=== PATIENT | female | born 1990 | race Caucasian/White ===

== ENCOUNTER 2018-01-11 16:45 | Emergency (ER) | payer OTHER ==
--- OUTSIDE RECORDS SUMMARY | 2018-01-11 16:47 | XMS REPORT | Continuity of Care Document ---
:1990 Author Organization Interface Problems Problem Status Onset Date Classification Date Comments Source Reported Medications Medication Details Route Status Patient Ordering Order Source Instructions Provider Date Allergies, Adverse Reactions, Alerts Substance Category Reaction Severity Reaction Status Date Comments Source type Reported Immunizations Immunization Date Given Site Status Last Updated Comments Source Results Order Results Value Reference Date Interpretation Comments Source Name Range Vital Signs Vital Sign Value Date Comments Source Encounters Location Location Encounter Encounter Reason Attending ADM DC Status Source Details Type Number For Provider Date Date Visit Outpatient [id number] TOMMY HASTINGS 07/09 [facility] /2016 [place] Out[facility] [id number] TOMMY HASTINGS 08/07 [facility] /2017 [place] Procedures Procedure Code Date Perfomer Comments Source
--- OUTSIDE RECORDS SUMMARY | 2018-01-11 16:47 | XMS REPORT | Summary of Care ---
:1990 Author Name JOANA Cruz, JEAN-PIERRE Address [facility] Unavailable , Care Team Providers Name Role Phone JOANA Cruz, JEAN-PIERRE Unavailable Unavailable MABEL Cruz, BRUNO Unavailable Unavailable Unavailable Unavailable Unavailable Functional Status Name Dates Details Functional status health issues are not documented Status: Name Dates Details Cognitive status health issues are not documented Status: Problems Name Dates Details Rheumatoid arthritis involving multiple sites with positive rheumatoid factor ( 714.0, M05.79) Status: Active Medications Name Dates Details Lyrica 75 MG Oral Capsule TAKE 1 CAPSULE TWICE DAILY. Quantity: 60 Refills: 2 Start : 20-Jun-2017 Active Lyrica 100 MG Oral Capsule TAKE 1 CAPSULE TWICE DAILY. Refills: 0 Start : 20-Jun-2017 Active Pantoprazole Sodium 40 MG Oral Tablet Delayed Release TAKE 1 TABLET BY MOUTH EVERY DAY Quantity: 30 Refills: 0 Start : 20-Jun-2017 Active Phenazopyridine HCl - 200 MG Oral Tablet Refills: 0 Start : 20-Jun-2017 Active Furosemide 20 MG Oral Tablet TAKE 1 TABLET BY MOUTH EVERY DAY Refills: 0 Start : 20-Jun-2017 Active Unisom Sleepgels 50 MG Oral Capsule TAKE 1 CAPSULE AT BEDTIME NEEDED. Refills: 0 Start : 20-Jun-2017 Active Vitamin D (Ergocalciferol) 09925 UNIT Oral Capsule TAKE 1 CAPSULE WEEKLY. Quantity: 12 Refills: 1 Start : 20-Jun-2017 Active Tamsulosin HCl - 0.4 MG Oral Capsule TAKE 1 CAPSULE DAILY Quantity: 90 Refills: 3 Start : 20-Jun-2017 Active Venlafaxine HCl ER 225 MG Oral Tablet Extended Release 24 Hour TAKE 1 TABLET BEDTIME Refills: 0 Start : 20-Jun-2017 Active HydrOXYzine HCl - 10 MG Oral Tablet TAKE 2 TABLETS AT BEDTIME. Refills: 0 Start : 20-Jun-2017 Active Cyclobenzaprine HCl - 10 MG Oral Tablet Refills: 0 Start : 20-Jun-2017 Active Promethazine HCl - 25 MG Oral Tablet TAKE 1 TABLET 3 TIMES DAILY NEEDED. Refills: 0 Start : 20-Jun-2017 Active Bydureon 2 MG Subcutaneous Pen-injector Refills: 0 Start : 20-Jun-2017 Active Hydrocodone-Acetaminophen 10-325 MG Oral Tablet TAKE 1 TABLET EVERY 8 HOURS NEEDED FOR PAIN. Quantity: 90 Refills: 0 Start : 20-Jun-2017 Active BusPIRone HCl - 10 MG Oral Tablet TAKE 1 TABLET 4 TIMES DAILY PRN Refills: 0 Start : 20-Jun-2017 Active HumaLOG KwikPen 100 UNIT/ML Subcutaneous Solution Pen-injector INJECT SUBCUTANEOUSLY DIRECTED. Refills: 0 Start : 20-Jun-2017 Active 3 ML Pen Tresiba FlexTouch 100 UNIT/ML Subcutaneous Solution Pen-injector INJECT 64 UNIT DAILY Refills: 0 Start : 20-Jun-2017 Active 5 x 3 ML Pen Remicade 100 MG Intravenous Solution Reconstituted 5 mg/kg for week 0, 2, 6 and every 6 weeks afterwards Quantity: 5 Refills: 4 BRUNO MONROE M.D. Start : 20-Jun-2017 Active SulfaSALAzine 500 MG Oral Tablet TAKE 2 TABLET TWICE DAILY Quantity: 120 Refills: 1 JEAN-PIERRE BERNARD M.D. Start : 19-Dec-2017 Active Allergies and Adverse Reactions Name Dates Details Ceclor (Allergy) Status: Active Procedures Procedure Dates Details Procedures not documented Immunization Name Dates Details Immunizations not documented Social History Name Dates Details - Status: Name Dates Details Never smoker Vital Signs Date Test Result Details No Known Vitals to report Results Date Description Value Details Results not documented Plan of Care Name Dates Details Planned Observations Planned Goals not documented Planned Encounters Appointment; JEAN-PIERRE BERNARD M.D. On: 23-Jan-2018 11:00 Interventions Provided Medication ChangesSulfaSALAzine 500 MG Oral Tablet - Start Instructions Name Dates Details Instructions not documented Encounters Appointment; JEAN-PIERRE BERNARD M.D. On: 20-Jun-2017 8:00 Encounter Diagnosis: Problem not documented Appointment; INFUSION, TREATMENT On: 29-Jul-2017 9:00 Encounter Diagnosis: Problem not documented Appointment; INFUSION, TREATMENT On: 12-Aug-2017 9:00 Encounter Diagnosis: Problem not documented Appointment; INFUSION, TREATMENT On: 09-Sep-2017 9:00 Encounter Diagnosis: Problem not documented Appointment; JEAN-PIERRE BERNARD M.D. On: 26-Sep-2017 11:00 Encounter Diagnosis: Problem not documented Appointment; INFUSION, TREATMENT On: 21-Oct-2017 9:00 Encounter Diagnosis: Problem not documented Appointment; INFUSION, TREATMENT On: 02-Dec-2017 9:00 Encounter Diagnosis: Problem not documented
[2018-01-11 17:23] LABS: Urine Blood 2+ (NEG); Urine Glucose 2+ (NEG); Urine Protein 3+ (NEG); Urine Specific Gravity 1.025 (1.005-1.030)
[2018-01-11] MEDS ORDERED: NA CHLORIDE 0.9% 1,000 ML ONE (17:23)
--- NOTE | 2018-01-11 17:32 | ER ---
Nurse's Notes [facility] Name: Lizzeth Mendes Age: 27 yrs Sex: Female : 1990 Arrival Date: 01/11/2018 Time: 16:48 Bed 27 Private MD: Devan Eric Diagnosis: Hyperglycemia, unspecified;Dehydration Presentation: 01/11 17:05 Presenting complaint: Patient states: "my blood sugar was 557 around 1030 today and I aa5 took 12 units of insulin and checked it right before coming here and it was 406". Pt also reports nausea and headache, denies vomiting. Transition of care: patient was not received from another setting of care. Onset of symptoms was December 2017. Risk Assessment: Do you want to hurt yourself or someone else? Patient reports no desire to harm self or others. Initial Sepsis Screen: Does the patient meet any 2 criteria? No. Patient's initial sepsis screen is negative. Does the patient have a suspected source of infection? No. Patient's initial sepsis screen is negative. Care prior to arrival: None. 17:05 Method Of Arrival: Ambulatory aa5 17:05 Acuity: SHANNON 3 aa5 Triage Assessment: 17:25 General: Appears in no apparent distress. well groomed, well developed, well nourished, rk2 Behavior is calm, cooperative. 17:25 Pain: Denies pain. Neuro: Level of Consciousness is alert, obeys commands, Oriented to rk2 person, place, time, situation. Respiratory: Airway is patent Respiratory effort is even, unlabored, Respiratory pattern is regular, symmetrical. Derm: Skin is pink, warm \\T\\ dry. 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 - Social history:: Smoking status: Patient uses tobacco products, smokes one-half pack cigarettes per day. - Ebola Screening: : No symptoms or risks identified at this time. Screenin:25 Abuse screen: Denies threats or abuse. rk2 17:25 Nutritional screening: No deficits noted. Tuberculosis screening: No symptoms or risk rk2 factors identified. Fall Risk None identified. Assessment: 17:34 Reassessment: Pt. signed AMA, pt. advised against leaving AMA, informed of risks rk2 involved and possible consequences of leaving. Pt. acknowledged that she understands. Also advised pt. that she is welcome to return at anytime if she changes her mind. Vital Signs: 17:04 BP 155 / 94; Pulse 106; Resp 16 S; Temp 98.0(TE); Pulse Ox 98% on R/A; Pain 5/10; aa5 ED Course: 16:48 Patient arrived in ED. mr 16:48 Devan Eric MD is Private Physician. mr 17:03 [facility] snw 17:03 Haroldo Lara MD is Attending Physician. snw 17:04 Arm band placed on. aa5 17:06 Triage completed. aa5 17:11 Shanon Awad RN is Primary Nurse. rk2 17:25 Patient has correct armband on for positive identification. Bed in low position. Call rk2 light in reach. 17:37 No provider procedures requiring assistance completed. Patient did not have IV access rk2 during this emergency room visit. Administered Medications: No medications were administered Point of Care Testing: Blood Glucose: 17:05 Blood Glucose: 385 mg/dL; aa5 Ranges: Outcome: 17:37 AMA AMA form signed rk2 17:37 Condition: unchanged 17:37 Instructed on AMA 17:50 Patient left the ED. rk2 Signatures: Maura Toledo FNP-C FNP-Maya Chun mr ManLeandra RN RN aa5 Shanon Awad RN RN rk2
--- NOTE | 2018-01-11 17:32 | EDPHYS ---
Physician Documentation [facility] Name: Lizzeth Mendes Age: 27 yrs Sex: Female : 1990 Arrival Date: 01/11/2018 Time: 16:48 Bed 27 Private MD: Devan Eric ED Physician Haroldo Lara HPI: 01/11 17:37 This 27 yrs old Female presents to ER via Ambulatory with complaints of High snw Blood Sugar. 17:37 The patient or guardian reports hyperglycemia, that was potentially precipitated by snw lack of sleep. Onset: The symptoms/episode began/occurred suddenly, 2 day(s) ago, and became persistent. Associated signs and symptoms: Pertinent positives: dry skin, ketones in urine, nausea, polydipsia, polyuria. Current symptoms: In the emergency department the patient's symptoms are unchanged from the initial presentation. The patient has experienced similar episodes in the past. It is unknown whether or not the patient has recently seen a physician. 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 - Social history:: Smoking status: Patient uses tobacco products, smokes one-half pack cigarettes per day. - Ebola Screening: : No symptoms or risks identified at this time. ROS: 17:37 Constitutional: Negative for fever, chills, and weight loss, Eyes: Negative for injury, snw pain, redness, and discharge, ENT: Negative for injury, pain, and discharge, Neck: Negative for injury, pain, and swelling, Cardiovascular: Negative for chest pain, palpitations, and edema, Respiratory: Negative for shortness of breath, cough, wheezing, and pleuritic chest pain, Back: Negative for injury and pain, : Negative for injury, bleeding, discharge, and swelling, MS/Extremity: Negative for injury and deformity, Skin: Negative for injury, rash, and discoloration, Neuro: Negative for headache, weakness, numbness, tingling, and seizure. 17:37 Abdomen/GI: Positive for nausea. Exam: 17:35 Head/Face: Normocephalic, atraumatic. Eyes: Pupils equal round and reactive to light, snw extra-ocular motions intact. Lids and lashes normal. Conjunctiva and sclera are non-icteric and not injected. Cornea within normal limits. Periorbital areas with no swelling, redness, or edema. Neck: Trachea midline, no thyromegaly or masses palpated, and no cervical lymphadenopathy. Supple, full range of motion without nuchal rigidity, or vertebral point tenderness. No Meningismus. Chest/axilla: Normal chest wall appearance and motion. Nontender with no deformity. No lesions are appreciated. Respiratory: Lungs have equal breath sounds bilaterally, clear to auscultation and percussion. No rales, rhonchi or wheezes noted. No increased work of breathing, no retractions or nasal flaring. Abdomen/GI: Soft, non-tender, with normal bowel sounds. No distension or tympany. No guarding or rebound. No evidence of tenderness throughout. Back: No spinal tenderness. No costovertebral tenderness. Full range of motion. Skin: Warm, dry with normal turgor. Normal color with no rashes, no lesions, and no evidence of cellulitis. MS/ Extremity: Pulses equal, no cyanosis. Neurovascular intact. Full, normal range of motion. Neuro: Awake and alert, GCS 15, oriented to person, place, time, and situation. Cranial nerves II-XII grossly intact. Motor strength 5/5 in all extremities. Sensory grossly intact. Cerebellar exam normal. Normal gait. Psych: Awake, alert, with orientation to person, place and time. Behavior, mood, and affect are within normal limits. 17:35 Constitutional: The patient appears alert, awake. 17:35 Constitutional: The patient appears appears dry 17:35 ENT: External ear(s): are unremarkable, Ear canal(s): are normal, Nose: is normal, Mouth: is normal, Posterior pharynx: is normal, Voice: is normal. 17:35 Cardiovascular: Rate: tachycardic, Rhythm: regular. Vital Signs: 17:04 BP 155 / 94; Pulse 106; Resp 16 S; Temp 98.0(TE); Pulse Ox 98% on R/A; Pain 5/10; aa5 MDM: 17:17 Patient medically screened. snw 17:36 Data reviewed: vital signs, nurses notes. Data interpreted: Pulse oximetry: on room air snw is 98 %. Interpretation: normal. Counseling: I had a detailed discussion with the patient and/or guardian regarding: the historical points, exam findings, and any diagnostic results supporting the discharge/admit diagnosis, the presence of at least one elevated blood pressure reading (>120/80) during this emergency department visit, lab results, the need for outpatient follow up, to return to the emergency department if symptoms worsen or persist or if there are any questions or concerns that arise at home. Refusal of service: The patient/guardian displays adequate decision making capability and despite a detailed discussion of alternatives, benefits, risks, and consequences refuses: labs, meds, ivf, tx in ED. Special discussion: Based on the history and exam findings, there is no indication for further emergent testing or inpatient evaluation. I discussed with the patient/guardian the need to see the primary care provider for further evaluation of the symptoms. 17:38 ED course: pt abruptly decided she no longer wanted to be here. Denies being upset or snw mad, just thinks she can "sleep it off". Discussed glucose control, increasing po fluid, insulin use, return to ED immediately for worsening or vomiting. 01/11 17:04 Order name: Urine Drug Screen; Complete Time: 17:40 snw 01/11 17:04 Order name: Urine Culture snw 01/11 17:04 Order name: Urine Microscopic Only; Complete Time: 17:40 snw 01/11 17:04 Order name: FSBS; Complete Time: 17:19 snw 01/11 17:04 Order name: Urine Test (obtain specimen); Complete Time: 17:19 snw 01/11 17:04 Order name: Urine Dipstick-Ancillary (obtain specimen); Complete Time: 17:19 snw 01/11 17:21 Order name: Urine Dipstick--Ancillary (enter results); Complete Time: 17:23 bd 01/11 17:21 Order name: Urine --Ancillary (enter results); Complete Time: 17:23 bd Administered Medications: No medications were administered Point of Care Testing: Blood Glucose: 17:05 Blood Glucose: 385 mg/dL; aa5 Ranges: Critical Glucose Levels:Adult <50 mg/dl or >400 mg/dl <40 mg/dl or >180 mg/dl Disposition: 01/12 16:15 Co-signature as Attending Physician, Haroldo Lara MD I agree with the assessment and meka plan of care. Disposition: 01/11/18 17:31 Patient has left against medical advice. Impression: Hyperglycemia, unspecified, Dehydration. - Patients states they are going to Home. - Condition is Stable. - Discharge Instructions: Dehydration, Adult, Diabetes and Sick Day Management, Hyperglycemia, Blood Glucose Monitoring, Adult, Rehydration, Adult. - Prescriptions for Zofran 4 mg Oral Tablet - take 1 tablet by ORAL route 4 times per day As needed; 20 tablet. Work release form form. Follow up: Private Physician; When: 24 Hours; Reason: Recheck today's complaints, Continuance of care, Re-evaluation by your physician. Follow up: Emergency Department; When: As needed; Reason: Worsening of condition. - Problem is an acute exacerbation. - Symptoms have worsened. Signatures: Dispatcher [employer] Haroldo Marrero MD MD cha Therrien, Shelly, CURATOR HORTICULTURAL MUSEUM-C CURATOR HORTICULTURAL MUSEUM-Csnw Leandra Man, RN RN aa5 Shanon Awad RN RN rk2 Corrections: (The following items were deleted from the chart) 01/11 17:50 17:31 01/11/2018 17:31 Patients has left against medical advice. Impression: rk2 Hyperglycemia, unspecified; Dehydration. Patient states they are going to Home. Condition is Stable. Follow up: Private Physician; When: 24 Hours; Reason: Recheck today's complaints, Continuance of care, Re-evaluation by your physician. Follow up: Emergency Department; When: As needed; Reason: Worsening of condition. Problem is an acute exacerbation. Symptoms have worsened. snw
[2018-01-11 17:37] LABS: Urine Bacteria <20 /HPF (<20); Urine Culture Reflex Order NOT NEEDED; Urine RBC LOADED /HPF (NONE SEEN)
[2018-01-11 17:40] LABS: Barbiturates NEGATIVE (NEGATIVE); Benzodiazepines NEGATIVE (NEGATIVE); Cocaine POSITIVE (NEGATIVE); METHAMPHETAM NEGATIVE (NEGATIVE); Methadone NEGATIVE (NEGATIVE); Opiates POSITIVE (NEGATIVE); Phencyclidine NEGATIVE (NEGATIVE); THC Cannibis NEGATIVE (NEGATIVE)
[2018-01-11 18:01] VITALS: BP 155/94; TEMP 98; O2SAT 98
== END 2018-01-11 17:50 | disposition left against medical advice (07) ==
LOC: ER 16:45
DX: E11.65 Type 2 diabetes mellitus with hyperglycemia (principal); E11.40 Type 2 diabetes mellitus with diabetic neuropathy, unspecified; Z88.1 Allergy status to other antibiotic agents; F17.210 Nicotine dependence, cigarettes, uncomplicated; M06.9 Rheumatoid arthritis, unspecified; E86.0 Dehydration; Z79.4 Long term (current) use of insulin
CPT/HCPCS: 80307; 81003; 81015; 81025; 82962; 87077; 87086; 87088; 87186; 99282; J7030

== ENCOUNTER 2018-01-13 13:21 | Inpatient (IN) | payer OTHER ==
--- OUTSIDE RECORDS SUMMARY | 2018-01-13 13:22 | XMS REPORT | Continuity of Care Document ---
[...] Number For Provider Date Date Visit Outpatient [id number] TOMMY HASTINGS 07/09 [facility] /2016 [place] [facility] [id number] TOMMY HASTINGS 08/07 [facility] /2017 [place] Procedures Procedure Code Date Perfomer Comments Source
[2018-01-13 14:13] LABS: Absolute Lymphocytes (CBC) 1.3 K/uL (0.7-4.9); Absolute Monocytes 0.4 K/uL (0.1-1.3); Absolute Neutrophil 5.7 K/uL (1.8-8.0); Basophils % 0.7 % (0-1.3); Eosinophils % 1.5 % (0-4.4); Hematocrit 34.6 % (36.0-45.0); Lymphocytes % 16.5 % (15.3-44.8); MCH 28.1 pg (27.0-35.0); MCV 89.3 fL (80-100); MPV 8.7 fL (7.6-11.3); Monocytes % 5.9 % (3.3-12.3); RBC Red Blood Cell Count 3.87 M/uL (3.86-4.86)
[2018-01-13 14:35] LABS: ALT/SGPT 23 U/L (12-78); AST/SGOT 10 U/L (15-37); Albumin 3.2 g/dL (3.4-5.0); Alkaline Phosphatase 106 U/L (45-117); BUN Blood Urea Nitrogen 30 mg/dL (7-18); Bilirubin Direct < 0.1 mg/dL (0-0.2); Bilirubin Total 0.4 mg/dL (0.2-1.0); Lipase 123 U/L (73-393); Potassium 3.8 mmol/L (3.5-5.1); Protein, Total 7.2 g/dL (6.4-8.2); Sodium Level 137 mmol/L (136-145)
[2018-01-13 14:45] LABS: Bicarbonate 14 mmol/L (21-32); Glucose Level 476 mg/dL (74-106)
[2018-01-13] MEDS ORDERED: NA CHLORIDE 0.9% 1,000 ML ONE ×2 (14:50→16:40)
--- NOTE | 2018-01-13 15:07 | ER ---
Nurse's Notes [facility] Name: Lizzeth Mendes Age: 27 yrs Sex: Female : 1990 Arrival Date: 01/13/2018 Time: 13:23 Bed 19 Private MD: Devan Eric Diagnosis: Type 1 diabetes mellitus with ketoacidosis Presentation: 01/13 13:29 Presenting complaint: Patient states: was seen here on Friday with Hyperglycemia but sv left before fluids were given. Pt checked her BS today and it was greater than 600. c/o nausea and being thirsty. Transition of care: patient was not received from another setting of care. Onset of symptoms was January 13, 2018. Care prior to arrival: None. 13:29 Method Of Arrival: Ambulatory sv 13:29 Acuity: SHANNON 3 sv 14:08 Risk Assessment: Do you want to hurt yourself or someone else? Patient reports no ph desire to harm self or others. Initial Sepsis Screen: Does the patient meet any 2 criteria? No. Patient's initial sepsis screen is negative. Does the patient have a suspected source of infection? No. Patient's initial sepsis screen is negative. 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 - Social history:: Smoking status: Patient uses tobacco products, smokes one-half pack cigarettes per day. - Ebola Screening: : No symptoms or risks identified at this time. Screenin:07 Abuse screen: Denies threats or abuse. Denies injuries from another. Nutritional ph screening: No deficits noted. Tuberculosis screening: No symptoms or risk factors identified. Fall Risk None identified. Assessment: 13:45 General: Appears in no apparent distress. uncomfortable, obese, Behavior is calm, ph cooperative, appropriate for age, Denies fever, feeling ill. Pain: Complains of pain in right leg and left leg. Neuro: Level of Consciousness is awake, alert, obeys commands, Oriented to person, place, time, situation. Cardiovascular: Capillary refill < 3 seconds Patient's skin is warm and dry. Respiratory: Airway is patent Respiratory effort is even, unlabored, Respiratory pattern is regular, symmetrical. GI: Abdomen is round non-distended, Bowel sounds present X 4 quads. Reports nausea, Patient currently denies abdominal pain, diarrhea, vomiting. : Denies burning with urination, urinary frequency. Derm: Skin is intact, Skin is pink, warm \T\ dry. Musculoskeletal: Circulation, motion, and sensation intact. Range of motion: intact in all extremities. 15:00 Reassessment: Patient appears in no apparent distress at this time. Patient and/or ph family updated on plan of care and expected duration. Pain level reassessed. Patient is alert, oriented x 3, equal unlabored respirations, skin warm/dry/pink. 16:18 Reassessment: Patient appears in no apparent distress at this time. Patient and/or ph family updated on plan of care and expected duration. Pain level reassessed. Pt asleep, respirations even and unlabored, awaiting insulin drip from pharmacy. 17:37 Reassessment: Patient appears in no apparent distress at this time. Patient and/or ph family updated on plan of care and expected duration. Pain level reassessed. Patient is alert, oriented x 3, equal unlabored respirations, skin warm/dry/pink. Pt ambulated to restroom, gait steady, urine sample obtained, report called to MARY Veras , pt to be taken to ICU. Vital Signs: 13:31 BP 136 / 83; Pulse 117; Resp 20; Temp 97.7; Pulse Ox 96% ; Height 5 ft. 3 in. (160.02 sv cm); Pain 6/10; 14:30 BP 136 / 81; Pulse 106; Resp 20; Pulse Ox 98% on R/A; ph 16:19 BP 147 / 78; Pulse 107; Resp 20; Pulse Ox 99% on R/A; ph 16:41 Weight 81.65 kg; ph 17:04 BP 140 / 78; Pulse 111; Resp 20; Temp 98.0; Pulse Ox 100% on R/A; ph 16:41 Body Mass Index 31.89 (81.65 kg, 160.02 cm) ph ED Course: 13:23 Patient arrived in ED. rg4 13:23 Devan Eric MD is Private Physician. rg4 13:31 Triage completed. sv 13:32 Arm band placed on left wrist. sv 13:36 Raul Riley MD is Attending Physician. gs 14:07 Rochelle William RN is Primary Nurse. ph 14:08 Patient has correct armband on for positive identification. Placed in gown. Bed in low ph position. Call light in reach. Side rails up X 1. Pulse ox on. NIBP on. Warm blanket given. 14:12 Missed attempt(s): 20 gauge in left antecubital area. Bleeding controlled, band aid dh3 applied, catheter tip intact. 14:34 Inserted saline lock: 22 gauge in right forearm, using aseptic technique. ,using sv aseptic technique. diffusics Flushed right forearm with 5 ml normal saline. 15:06 Devan Eric MD is Hospitalizing Provider. gs 16:40 No provider procedures requiring assistance completed. Patient admitted, IV remains in ph place. Administered Medications: 15:30 Drug: NS 0.9% 1000 ml Route: IV; Rate: 1 bolus; Site: right forearm; ph 17:45 Follow up: Response: No adverse reaction; IV Status: Completed infusion ph 17:00 Drug: NS 0.9% 1000 ml Route: IV; Rate: 125 ml/hr; Site: right forearm; ph 17:45 Follow up: Response: No adverse reaction; IV Status: Infusion continued upon admission ph 17:00 Drug: Insulin Drip - (Insulin Regular Human 100 units, NS 0.9% 100 ml) {Co-Signature: ph rb1 (Aminata Tatum RN).} {Note: initiated at 5 units/hr.} Route: IV; Rate: calculated rate; Site: right forearm; 17:45 Follow up: Response: No adverse reaction; IV Status: Infusion continued upon admission ph Point of Care Testing: Blood Glucose: 13:37 Blood Glucose: 451 mg/dL; dh3 17:00 Blood Glucose: 364 mg/dL; ph Ranges: Outcome: 15:07 Decision to Hospitalize by Provider. gs 17:37 Admitted to ICU accompanied by nurse, accompanied by tech, via stretcher, room 8, with ph chart, Report called to MARY Veras 17:37 Condition: stable 17:37 Instructed on the need for admit. 18:13 Patient left the ED. ph Signatures: Debby Ferris RN RN Sakshi Bullock, RN RN ss Stewart, Rochelle RN RN venancio Garcia, Jailene 4 Sindi Vera 3 Raul Riley MD MD Aminata Tatum RN rb1
--- NOTE | 2018-01-13 15:07 | EDPHYS ---
Physician Documentation [facility] Name: Lizzeth Mendes Age: 27 yrs Sex: Female : 1990 Arrival Date: 01/13/2018 Time: 13:23 Bed 19 Private MD: Devan Eric ED Physician Raul Riley HPI: 01/13 16:03 This 27 yrs old Female presents to ER via Ambulatory with complaints of High gs Blood Sugar. 16:03 Onset: The symptoms/episode began/occurred 1 week(s) ago, and became worse and became gs persistent. Associated signs and symptoms: Pertinent positives: anorexia, vomiting. Current symptoms: In the emergency department the patient's symptoms have improved. The patient has experienced similar episodes in the past, multiple times. The patient has been recently seen at the [facility] Emergency Department, last week. SYSTEMS ADMIN: 13:31 LMP N/A - control method sv Historical: - Allergies: 13:31 Ceclor; sv - PMHx: 13:31 Anemia; Diabetes - IDDM; neuroapthy; Rheumatoid Arthritis; sv - PSHx: 13:31 WISDOM TEETH; sv - Immunization history:: Adult Immunizations up to date. - Social history:: Smoking status: Patient uses tobacco products, smokes one-half pack cigarettes per day. - Ebola Screening: : No symptoms or risks identified at this time. ROS: 16:03 All other systems are negative. gs Exam: 16:03 Head/Face: Normocephalic, atraumatic. Eyes: Pupils equal round and reactive to light, gs extra-ocular motions intact. Lids and lashes normal. Conjunctiva and sclera are non-icteric and not injected. Cornea within normal limits. Periorbital areas with no swelling, redness, or edema. ENT: Nares patent. No nasal discharge, no septal abnormalities noted. Tympanic membranes are normal and external auditory canals are clear. Oropharynx with no redness, swelling, or masses, exudates, or evidence of obstruction, uvula midline. Mucous membranes moist. Neck: Trachea midline, no thyromegaly or masses palpated, and no cervical lymphadenopathy. Supple, full range of motion without nuchal rigidity, or vertebral point tenderness. No Meningismus. Chest/axilla: Normal chest wall appearance and motion. Nontender with no deformity. No lesions are appreciated. Respiratory: Lungs have equal breath sounds bilaterally, clear to auscultation and percussion. No rales, rhonchi or wheezes noted. No increased work of breathing, no retractions or nasal flaring. Abdomen/GI: Soft, non-tender, with normal bowel sounds. No distension or tympany. No guarding or rebound. No evidence of tenderness throughout. Back: No spinal tenderness. No costovertebral tenderness. Full range of motion. Skin: Warm, dry with normal turgor. Normal color with no rashes, no lesions, and no evidence of cellulitis. MS/ Extremity: Pulses equal, no cyanosis. Neurovascular intact. Full, normal range of motion. Neuro: Awake and alert, GCS 15, oriented to person, place, time, and situation. Cranial nerves II-XII grossly intact. Motor strength 5/5 in all extremities. Sensory grossly intact. Cerebellar exam normal. Normal gait. 16:03 Constitutional: The patient appears alert, awake. 16:03 Cardiovascular: Rate: tachycardic, Rhythm: regular, Pulses: no pulse deficits are appreciated. Vital Signs: 13:31 BP 136 / 83; Pulse 117; Resp 20; Temp 97.7; Pulse Ox 96% ; Height 5 ft. 3 in. (160.02 sv cm); Pain 6/10; 14:30 BP 136 / 81; Pulse 106; Resp 20; Pulse Ox 98% on R/A; ph 16:19 BP 147 / 78; Pulse 107; Resp 20; Pulse Ox 99% on R/A; ph 16:41 Weight 81.65 kg; ph 17:04 BP 140 / 78; Pulse 111; Resp 20; Temp 98.0; Pulse Ox 100% on R/A; ph 16:41 Body Mass Index 31.89 (81.65 kg, 160.02 cm) ph MDM: 13:43 Patient medically screened. 01/13 13:44 Order name: Basic Metabolic Panel; Complete Time: 15:03 01/13 13:44 Order name: CBC with Diff; Complete Time: 15:03 01/13 13:44 Order name: Hepatic Function; Complete Time: 15:03 01/13 13:44 Order name: Lipase; Complete Time: 15:03 01/13 13:44 Order name: Urine Microscopic Only 01/13 15:03 Order name: Magnesium 01/13 15:03 Order name: Phosphorus 01/13 16:09 Order name: ABG 01/13 16:30 Order name: Acetone, Serum 01/13 16:43 Order name: ABG Arterial Blood Gas [facility] 01/13 17:46 Order name: Urine Dipstick--Ancillary (enter results) 01/13 17:46 Order name: Urine --Ancillary (enter results) 01/13 17:54 Order name: Urine --Ancillary [facility] 01/13 17:54 Order name: Urine Dipstick-Ancillary [facility] 01/13 13:44 Order name: IV Saline Lock; Complete Time: 14:35 01/13 13:44 Order name: Labs collected and sent; Complete Time: 16:22 01/13 17:56 Order name: Acetone Level EDID Administered Medications: 15:30 Drug: NS 0.9% 1000 ml Route: IV; Rate: 1 bolus; Site: right forearm; ph 17:45 Follow up: Response: No adverse reaction; IV Status: Completed infusion ph 17:00 Drug: NS 0.9% 1000 ml Route: IV; Rate: 125 ml/hr; Site: right forearm; ph 17:45 Follow up: Response: No adverse reaction; IV Status: Infusion continued upon admission ph 17:00 Drug: Insulin Drip - (Insulin Regular Human 100 units, NS 0.9% 100 ml) {Co-Signature: ph rb1 (Aminata Tatum RN).} {Note: initiated at 5 units/hr.} Route: IV; Rate: calculated rate; Site: right forearm; 17:45 Follow up: Response: No adverse reaction; IV Status: Infusion continued upon admission ph Point of Care Testing: Blood Glucose: 13:37 Blood Glucose: 451 mg/dL; dh3 17:00 Blood Glucose: 364 mg/dL; ph Ranges: Critical Glucose Levels:Adult <50 mg/dl or >400 mg/dl <40 mg/dl or >180 mg/dl Disposition: 01/13/18 15:07 Hospitalization ordered by Devan Eric for Inpatient Admission. Preliminary diagnosis is Type 1 diabetes mellitus with ketoacidosis. - Bed requested for Intensive Care Unit. - Status is Inpatient Admission. ph - Condition is Stable. - Problem is new. - Symptoms have improved. UTI on Admission? No Signatures: Dispatcher [employer] EDMS Lizzie Leung Stephanie, RN Shonda Nichole, RN RN Rochelle William RN RN RileyRaul doshi MD MD Aminata Tatum RN rb1 Corrections: (The following items were deleted from the chart) 16:23 15:07 Hospitalization Ordered by Devan Eric MD for Inpatient Admission. Preliminary dw diagnosis is Type 1 diabetes mellitus with ketoacidosis. Bed requested for Intensive Care Unit. Status is Inpatient Admission. Condition is Stable. Problem is new. Symptoms have improved. UTI on Admission? No. gs 17:17 16:23 01/13/2018 15:07 Hospitalization Ordered by Devan Eric MD for Inpatient bd Admission. Preliminary diagnosis is Type 1 diabetes mellitus with ketoacidosis. Bed requested for Intensive Care Unit. Status is Inpatient Admission. Condition is Stable. Problem is new. Symptoms have improved. UTI on Admission? No. 18:13 17:17 01/13/2018 15:07 Hospitalization Ordered by Devan Eric MD for Inpatient ph Admission. Preliminary diagnosis is Type 1 diabetes mellitus with ketoacidosis. Bed requested for Intensive Care Unit. Status is Inpatient Admission. Condition is Stable. Problem is new. Symptoms have improved. UTI on Admission? No. bd
[2018-01-13] MEDS ORDERED: ONDANSETRON 4 MG/2 ML VIAL IV PRN ×2 (15:46→17:15)
[2018-01-13] MEDS ORDERED: NACHLORIDE 0.45% 1,000 ML IV SCH (16:00)
[2018-01-13] MEDS ORDERED: INSULIN -REGULAR HUMAN 100 UNIT in NA CHLORIDE 0.9% 100 ML IV SCH (16:00)
[2018-01-13 16:29] LABS: Arterial Blood Carboxyhemoglob 0.8 % (0-1.5); Blood Gas Oxyhemoglobin 92.1 % (94-97); Blood O2 Saturation 94.9 % (92-98.5)
[2018-01-13] MEDS ORDERED: D50W 25 GM/50 ML SYRINGE IV PRN (17:18)
[2018-01-13] MEDS ORDERED: GLUCAGON 1 MG/VIAL IM PRN ×2 (17:18→17:55)
--- NOTE | 2018-01-13 17:28 | P.HP ---
Certification for Inpatient Patient admitted to: Inpatient With expected LOS: >2 Midnights Patient will require the following post-hospital care: None Practitioner: I am a practitioner with admitting privileges, knowledge of patient current condition, hospital course, and medical plan of care. 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 She woke up this morning sweating. Her sugars were in the 600's. [place] that her insulin pump was not working right. The patient had no complaints of fever or chills. No cough, dysuria or diarrhea. She was continuing to stay elevated. Decided to come to the ER. Allergies cefaclor [From Ceclor] Allergy (Verified 01/21/17 11:05) Itching/Hives/Rash Home Medications: Pregabalin [Lyrica*] 150 mg PO TID 01/09/16 Venlafaxine HCl [Effexor*] 225 mg PO BEDTIME 01/09/16 Folic Acid 1 mg PO DAILY 01/21/17 Hydrocodone Bit/Acetaminophen [Hydrocodon-Acetaminophn 10-325] 1 tab PO TID 11/04 Insulin Aspart [Novolog Flexpen] See Protocol SQ TIDWM 01/21/17 Insulin Degludec [Tresiba Flextouch U-100] 70 units SQ DAILY 01/21/17 Iron 65 mg PO BID 01/21/17 Pantoprazole [Protonix Tab*] 40 mg PO DAILY 01/21/17 Trazodone [Desyrel*] 50 mg PO BEDTIME 01/21/17 Smz./Tmp. [Bactrim Ds 800 MG/160 MG] 1 tab PO BID #10 tab 01/22/17 - Past Medical/Surgical History Diabetic: Yes -: DM1 since 2011 -: HTN -: RA -: Depression -: gastric ulcers -: Neuropathy -: tooth extraction - Family History Sister -: Diabetes Notes: TYPE I - Social History Alcohol use: Yes CD- Drugs: No Caffeine use: Yes Review of Systems 10-point ROS is otherwise unremarkable General: Chills, Sweats Physical Examination - Physical Exam General: Alert, In no apparent distress HEENT: Atraumatic, PERRLA, Mucous membr. moist/pink, EOMI, Sclerae nonicteric Neck: Supple, 2+ carotid pulse no bruit, No LAD, Without JVD or thyroid abnormality Respiratory: Clear to auscultation bilaterally, Normal air movement Cardiovascular: Regular rate/rhythm, Normal S1 S2 Gastrointestinal: Normal bowel sounds, No tenderness Musculoskeletal: No tenderness Integumentary: No rashes Neurological: Normal gait, Normal speech, Normal strength at 5/5 x4 extr, Normal tone, Normal affect Lymphatics: No axilla or inguinal lymphadenopathy - Studies Laboratory Data (last 24 hrs) 01/13/18 13:54: Phosphorus 3.0, Magnesium 2.0 01/13/18 13:54: WBC 7.6, Hgb 10.9 L, Hct 34.6 L, Plt Count 262 01/13/18 13:54: Sodium 137, Potassium 3.8, BUN 30 H, Creatinine 2.30 H, Glucose 476 H*, Total Bilirubin 0.4, AST 10 L, ALT 23, Alkaline Phosphatase 106, Lipase 123 Assessment and Plan - Problems (Diagnosis) (1) Diabetic hyperosmolar non-ketotic state Onset Date: 01/22/17 Current Visit: No Status: Acute Plan: Patient will be admitted to the unit on an insulin drip. Has some signs that there may be a UTI. Will wait for the results. may be due to the elevated sugar and ketones in the urine. Will keep her on the drip while she has an anion gap. She has the number for her [employer] rep. Will need to have nursing call to have them come down and evaluate her device. Discharge Plan: Home Plan to discharge in: Greater than 2 days - Advance Directives Does patient have a Living Will: No Does patient have a Durable POA for Healthcare: No - Code Status/Comfort Care Code Status Assessed: Yes Code Status: Full Code Physician Review: Patient Assessed, Agree with Above Assessment and Plan Critical Care: Yes Time Spent Managing Pts Care (In Minutes): 40
[2018-01-13 17:54] LABS: Urine Blood 2+ (NEG); Urine Glucose 2+ (NEG); Urine Protein 3+ (NEG); Urine pH 5.5 (5.0-7.0)
[2018-01-13 17:59] LABS: Urine Bacteria >50 /HPF (<20); Urine Culture Reflex Order REFLEXED
[2018-01-13] MEDS: NA CHLORIDE 0.9% 1,000 ML IV SCH ×2 (18:00→22:51)
[2018-01-13] MEDS ORDERED: INSULIN -REGULAR HUMAN 50 UNIT/0.5 ML ML IV SCH (18:00)
[2018-01-13 18:21] VITALS: BMI 33.1
[2018-01-13] MEDS: HYDROCODONE/APAP 7.5/325 MG TAB PO PRN (18:30)
[2018-01-13] MEDS: ENOXAPARIN 40 MG/0.4 ML SQ SCH (18:30)
[2018-01-13 19:32] LABS: Potassium 3.7 mmol/L (3.5-5.1)
[2018-01-13] MEDS: PREGABALIN 75 MG CAP PO SCH (20:58)
[2018-01-13] MEDS ORDERED: INSULIN -REGULAR HUMAN 50 UNIT/0.5 ML ML SQ SCH (21:00)
[2018-01-13] MEDS: FLUTICASONE 50MCG NASAL SPRAY NAS SCH (21:00)
[2018-01-14 05:57] LABS: Absolute Lymphocytes (CBC) 2.8 K/uL (0.7-4.9); Absolute Monocytes 0.6 K/uL (0.1-1.3); Absolute Neutrophil 3.1 K/uL (1.8-8.0); Basophils % 0.9 % (0-1.3); Eosinophils % 3.8 % (0-4.4); Hematocrit 28.6 % (36.0-45.0); Lymphocytes % 41.5 % (15.3-44.8); MCH 28.3 pg (27.0-35.0); MCV 87.2 fL (80-100); MPV 8.2 fL (7.6-11.3); Monocytes % 8.5 % (3.3-12.3); RBC Red Blood Cell Count 3.28 M/uL (3.86-4.86)
[2018-01-14 06:15] LABS: BUN Blood Urea Nitrogen 21 mg/dL (7-18); Bicarbonate 20 mmol/L (21-32); Glucose Level 185 mg/dL (74-106); HDL Cholesterol 51 mg/dL (40-60); LDL Cholesterol, Calculated 128 (<130); Potassium 3.9 mmol/L (3.5-5.1); Sodium Level 141 mmol/L (136-145); Thyroid Stimulating Hormone 0.54 uIU/mL (0.36-3.74)
[2018-01-14] MEDS: NA CHLORIDE 0.9% 1,000 ML IV SCH ×3 (06:44→22:55)
[2018-01-14] MEDS ORDERED: D50W 25 GM/50 ML SYRINGE IV PRN ×2 (08:43→08:44)
[2018-01-14] MEDS ORDERED: GLUCAGON 1 MG/VIAL IM PRN ×2 (08:43→08:44)
[2018-01-14] MEDS: INSULIN DETEMIR 100 UNIT/1 ML INSULIN SQ SCH (09:28)
[2018-01-14] MEDS: PANTOPRAZOLE 40MG TABLET PO SCH (09:28)
[2018-01-14] MEDS: PREGABALIN 75 MG CAP PO SCH ×2 (09:28→20:22)
--- NOTE | 2018-01-14 10:32 | P.PN ---
Subjective Date of Service: 01/14/18 Primary Care Provider: Hernesto Chief Complaint: diabetic ketoacidosis Subjective: Improving (anion gap has closed.) Review of Systems 10-point ROS is otherwise unremarkable Physical Examination - Vital Signs Temperature: 98.7 F Blood Pressure: 152/100 Pulse: 93 Respirations: 11 Pulse Ox (%): 93 - Physical Exam General: Alert, In no apparent distress HEENT: Atraumatic, PERRLA, EOMI Neck: Supple, JVD not distended Respiratory: Clear to auscultation bilaterally, Normal air movement Cardiovascular: Regular rate/rhythm, Normal S1 S2 Gastrointestinal: Normal bowel sounds, No tenderness Musculoskeletal: No tenderness Integumentary: No rashes Neurological: Normal speech, Normal tone, Normal affect Lymphatics: No axilla or inguinal lymphadenopathy - Studies Laboratory Data (last 24 hrs) 01/13/18 13:54: Phosphorus 3.0, Magnesium 2.0 01/13/18 13:54: WBC 7.6, Hgb 10.9 L, Hct 34.6 L, Plt Count 262 01/13/18 13:54: Sodium 137, Potassium 3.8, BUN 30 H, Creatinine 2.30 H, Glucose 476 H*, Total Bilirubin 0.4, AST 10 L, ALT 23, Alkaline Phosphatase 106, Lipase 123 Assessment & Plan - Problems (Diagnosis) (1) Diabetic hyperosmolar non-ketotic state Onset Date: 01/22/17 Current Visit: No Status: Acute Plan: Patient gap is closed. Will start her on levemir and sliding scale. Start feeding her. Will have her bring her pump and will have the [employer] rep come in to evaluate her pump Discharge Plan: Home Plan to discharge in: 48 Hours - Code Status/Comfort Care Code Status Assessed: Yes Code Status: Full Code Physician Review: Patient Assessed, Agree with Above Assessment and Plan Critical Care: Yes Time Spent Managing Pts Care (In Minutes): 20
[2018-01-14] MEDS: HYDROCODONE/APAP 7.5/325 MG TAB PO PRN ×3 (11:04→20:28)
[2018-01-14] MEDS: VENLAFAXINE HCL 75 MG TABLET PO SCH (12:11)
[2018-01-14] MEDS: INSULIN -REGULAR HUMAN 50 UNIT/0.5 ML ML SQ SCH ×3 (12:11→20:22)
[2018-01-14] MEDS: ENOXAPARIN 40 MG/0.4 ML SQ SCH (17:32)
[2018-01-14] MEDS: AMLODIPINE 10 MG TAB PO SCH (17:32)
[2018-01-14] MEDS: NITROFURAN MACRO 100 MG CAP PO SCH ×2 (17:41→17:42)
[2018-01-14] MEDS: FLUTICASONE 50MCG NASAL SPRAY NAS SCH (20:36)
[2018-01-14 21:11] VITALS: O2SAT 95
[2018-01-15] MEDS: NA CHLORIDE 0.9% 1,000 ML IV SCH ×2 (01:22→09:16)
[2018-01-15] MEDS: HYDROCODONE/APAP 7.5/325 MG TAB PO PRN ×2 (04:22→10:08)
[2018-01-15 06:02] LABS: Absolute Monocytes 0.5 K/uL (0.1-1.3); Absolute Neutrophil 1.7 K/uL (1.8-8.0); Eosinophils % 5.4 % (0-4.4); Hematocrit 30.2 % (36.0-45.0); Lymphocytes % 53.9 % (15.3-44.8); MCH 28.4 pg (27.0-35.0); MCV 87.9 fL (80-100); Monocytes % 9.2 % (3.3-12.3); RBC Red Blood Cell Count 3.43 M/uL (3.86-4.86)
[2018-01-15 06:21] LABS: Potassium 3.5 mmol/L (3.5-5.1)
[2018-01-15] MEDS ORDERED: POTASSIUM CL SA 10 MEQ TAB PO ONE (07:30)
[2018-01-15] MEDS: INSULIN -REGULAR HUMAN 50 UNIT/0.5 ML ML SQ SCH ×2 (07:30→11:33)
[2018-01-15] MEDS: INSULIN DETEMIR 100 UNIT/1 ML INSULIN SQ SCH (09:00)
[2018-01-15 09:03] VITALS: BP 163/94; TEMP 97.5
[2018-01-15] MEDS: AMLODIPINE 10 MG TAB PO SCH (09:15)
[2018-01-15] MEDS: NITROFURAN MACRO 100 MG CAP PO SCH (09:15)
[2018-01-15] MEDS: VENLAFAXINE HCL 75 MG TABLET PO SCH (09:15)
[2018-01-15] MEDS: PREGABALIN 75 MG CAP PO SCH (09:15)
[2018-01-15] MEDS: PANTOPRAZOLE 40MG TABLET PO SCH (09:15)
--- NOTE | 2018-01-15 11:00 | P.DS ---
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 She woke up this morning sweating. Her sugars were in the 600's. Mikado that her insulin pump was not working right. The patient had no complaints of fever or chills. No cough, dysuria or diarrhea. She was continuing to stay elevated. Decided to come to the ER. Hospital Course: patient was admitted to the ICU started on an Insulin drip. her Gap closed by the next morning. She was started on levemir. Was able to tolerate oral food. Was transfered to the floor. We contacted [employer] her insulin pump company. The patient can be safely discharged when her pump supplies arrive at home. Will have her follow up in the office. Vital Signs/Physical Exam: Temp Pulse Resp BP Pulse Ox 97.5 F 89 18 163/94 H 96 01/15/18 08:00 01/15/18 08:00 01/15/18 08:00 01/15/18 08:00 01/15/18 08:00 General: Alert, In no apparent distress HEENT: Atraumatic, PERRLA, EOMI Neck: Supple, JVD not distended Respiratory: Clear to auscultation bilaterally, Normal air movement Cardiovascular: Regular rate/rhythm, Normal S1 S2 Gastrointestinal: Normal bowel sounds, No tenderness Musculoskeletal: No tenderness Integumentary: No rashes Neurological: Normal speech, Normal tone, Normal affect Lymphatics: No axilla or inguinal lymphadenopathy Laboratory Data at Discharge: WBC 5.6 K/uL (4.3-10.9) D 01/15/18 05:31 Hgb 9.7 g/dL (12.0-15.0) L 01/15/18 05:31 Hct 30.2 % (36.0-45.0) L 01/15/18 05:31 Plt Count 212 K/uL (152-406) 01/15/18 05:31 Sodium 143 mmol/L (136-145) 01/15/18 05:31 Potassium 3.5 mmol/L (3.5-5.1) 01/15/18 05:31 BUN 15 mg/dL (7-18) 01/15/18 05:31 Creatinine 1.30 mg/dL (0.55-1.3) 01/15/18 05:31 Glucose 94 mg/dL (74-106) 01/15/18 05:31 Phosphorus 3.0 mg/dL (2.5-4.9) 01/13/18 13:54 Magnesium 2.0 mg/dL (1.8-2.4) 01/14/18 05:34 Total Bilirubin 0.4 mg/dL (0.2-1.0) 01/13/18 13:54 AST 10 U/L (15-37) L 01/13/18 13:54 ALT 23 U/L (12-78) 01/13/18 13:54 Alkaline Phosphatase 106 U/L (45-117) 01/13/18 13:54 Triglycerides 119 mg/dL (<150) 01/14/18 05:34 Cholesterol 203 mg/dL (<200) H 01/14/18 05:34 HDL Cholesterol 51 mg/dL (40-60) 01/14/18 05:34 Cholesterol/HDL Ratio 3.98 01/14/18 05:34 Lipase 123 U/L (73-393) 01/13/18 13:54 Home Medications: Venlafaxine HCl [Effexor*] 150 mg PO BEDTIME 01/09/16 Amlodipine [Norvasc] 10 mg PO DAILY 01/13/18 Aripiprazole [Abilify] 2 mg PO BEDTIME 01/13/18 Doxylamine Succinate [Unisom] 25 mg PO BEDTIME 01/13/18 Hydrocodone Bit/Acetaminophen [Hydrocodon-Acetaminophn 10-325] 1 each PO TID PRN 01/13/18 Hydroxyzine HCl [Atarax] 20 mg PO BEDTIME 01/13/18 Levothyroxine [Synthroid] 75 mcg PO [id number] 01/13/18 Pantoprazole [Protonix Tab] 40 mg PO DAILY 01/13/18 Pregabalin [Lyrica] 100 mg PO BID 01/13/18 sulfaSALAzine [Sulfasalazine] 1,000 mg PO BID 01/13/18 Insulin Detemir [Levemir*] 25 units SQ DAILY 30 Days ml 01/15/18 New Medications: Insulin Detemir [Levemir*] 25 units SQ DAILY 30 Days ml Diet: ADA Activity: Ad kala Followup: Devan Eric MD [Primary Care Provider] - 1-2 Weeks Physician Review: Patient Assessed, Agree with Above Assessment and Plan Time spent managing pt's care (in minutes): 45
== END 2018-01-15 12:10 | disposition home or self-care (01) | DRG 919 ==
LOC: ER 13:21 → ERHOLD 15:07 → 3RD-ICU 17:41 → 2ND 01-14 19:09
PROVIDERS: ADMIT Internal Medicine; ATTEND Internal Medicine
DX: T85.694A Other mechanical complication of insulin pump, initial encounter (principal); E10.10 Type 1 diabetes mellitus with ketoacidosis without coma; Z88.1 Allergy status to other antibiotic agents; I10 Essential (primary) hypertension; M06.9 Rheumatoid arthritis, unspecified; F32.9 Major depressive disorder, single episode, unspecified; E10.40 Type 1 diabetes mellitus with diabetic neuropathy, unspecified; E66.9 Obesity, unspecified; Z68.31 Body mass index [BMI] 31.0-31.9, adult
CPT/HCPCS: 36415; 80048; 80061; 80076; 80307; 81003; 81015; 81025; 82010; 82805; 82962; 83036; 83690; 83735; 84100; 84443; 85025; 87077; 87086; 87088; 87186; 96361; 96365; 99282; 99285; J1650; J7030

== ENCOUNTER 2018-01-20 21:04 | Emergency (ER) | payer OTHER ==
--- OUTSIDE RECORDS SUMMARY | 2018-01-20 21:06 | XMS REPORT | Continuity of Care Document ---
[...] Number For Provider Date Date Visit Outpatient [id number] TOMMY HASTINGS 07/09 [facility] /2016 [facility] Outpatient [id number] TOMMY HASTINGS 08/07 [facility] /2017 [facility] Procedures Procedure Code Date Perfomer Comments Source
[2018-01-20] MEDS ORDERED: KETOROLAC 30 MG/ML INJ ONE ×2 (22:00→22:29)
[2018-01-20 22:06] LABS: Urine Blood 3+ (NEG); Urine Glucose 2+ (NEG); Urine Protein 3+ (NEG); Urine pH 5.5 (5.0-7.0)
[2018-01-20] MEDS ORDERED: CYCLOBENZAPRINE 10 MG TAB ONE (23:30)
[2018-01-20 23:54] LABS: Absolute Lymphocytes (CBC) 2.3 K/uL (0.7-4.9); Absolute Monocytes 0.7 K/uL (0.1-1.3); Absolute Neutrophil 4.1 K/uL (1.8-8.0); Basophils % 0.6 % (0-1.3); Eosinophils % 2.4 % (0-4.4); Hematocrit 29.7 % (36.0-45.0); Lymphocytes % 31.7 % (15.3-44.8); MCH 28.6 pg (27.0-35.0); MPV 8.8 fL (7.6-11.3); Monocytes % 9.3 % (3.3-12.3); RBC Red Blood Cell Count 3.37 M/uL (3.86-4.86)
[2018-01-21 00:11] LABS: Potassium 3.9 mmol/L (3.5-5.1)
--- NOTE | 2018-01-21 00:46 | ER ---
Nurse's Notes [facility] Name: Lizzeth Mendes Age: 27 yrs Sex: Female : 1990 Arrival Date: 01/20/2018 Time: 21:08 Bed 14 Private MD: Devan Eric Diagnosis: Pain in left knee;Diabetes mellitus due to underlying condition with hyperglycemia;Chronic kidney disease, unspecified Presentation: 01/20 21:19 Presenting complaint: Patient states: she is having sudden onset of left knee pain she bb is on pain management for arthritis and takes hydrocodone but it is not helping and she is having difficulty walking. Transition of care: patient was not received from another setting of care. Onset of symptoms was January 20, 2018. Risk Assessment: Do you want to hurt yourself or someone else? Patient reports no desire to harm self or others. Initial Sepsis Screen: Does the patient meet any 2 criteria? No. Patient's initial sepsis screen is negative. Does the patient have a suspected source of infection? No. Patient's initial sepsis screen is negative. Care prior to arrival: None. 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/A - control method bb Historical: - Allergies: 21:27 Ceclor; bb - Home Meds: 21:27 Humalog 100 unit/mL Sub-Q crtg per sliding scale [Active]; Toujeo SoloStar subcutaneous bb 65 unit nightly [Active]; sulfasalazine 500 mg Oral tab 1 tab 4 times per day [Active]; [place] 10-325 mg Oral tab 1 tab three times a day [Active]; amlodipine 10 mg tab 1 tab once daily [Active]; Abilify 2 mg oral tab daily [Active]; buspirone 15 mg Oral tab 1 tab 2 times per day [Active]; furosemide 20 mg Oral tab 1 tab once daily [Active]; hydroxyzine HCl 10 mg Oral tab twice a day [Active]; Lyrica 100 mg Oral 2 times per day [Active]; pantoprazole 40 mg oral TbEC 1 tab once daily [Active]; Synthroid 75 mcg Oral tab 1 tab once daily [Active]; unisom [Active]; venlafaxine 150 mg oral cp24 1 cap once daily [Active]; - PMHx: 21:27 Anemia; Diabetes - IDDM; neuroapthy; Rheumatoid Arthritis; bb - PSHx: 21:27 dental surgery; bb - Immunization history:: Adult Immunizations up to date. - Social history:: Smoking status: Patient uses tobacco products, smokes one-half pack cigarettes per day, Patient/guardian denies using alcohol, street drugs. - Ebola Screening: : No symptoms or risks identified at this time. Screenin:35 Abuse screen: Denies threats or abuse. Denies injuries from another. Nutritional lp1 screening: No deficits noted. Tuberculosis screening: No symptoms or risk factors identified. Fall Risk None identified. Assessment: 21:41 General: Appears uncomfortable, Behavior is calm, cooperative, appropriate for age. lp1 Pain: Complains of pain in left knee Pain currently is 8 out of 10 on a pain scale. Quality of pain is described as sharp, Aggravated by increased activity, weight bearing, Noted to be grimacing. Neuro: Level of Consciousness is awake, alert, obeys commands. Cardiovascular: Patient's skin is warm and dry. Respiratory: Respiratory effort is even, unlabored. GI: No signs and/or symptoms were reported involving the gastrointestinal system. : No signs and/or symptoms were reported regarding the genitourinary system. EENT: No signs and/or symptoms were reported regarding the EENT system. Derm: Skin is pink, warm \T\ dry. Musculoskeletal: Circulation, motion, and sensation intact. Range of motion: limited in left knee. 22:45 Reassessment: Patient appears in no apparent distress at this time. No changes from lp1 previously documented assessment. Patient and/or family updated on plan of care and expected duration. Pain level reassessed. 23:33 Reassessment: Patient appears in no apparent distress at this time. Patient and/or mg2 family updated on plan of care and expected duration. Pain level reassessed. Patient is alert, oriented x 3, equal unlabored respirations, skin warm/dry/pink. Vital Signs: 21:27 BP 139 / 86; Pulse 114; Resp 16 S; Temp 99.1(O); Pulse Ox 99% on R/A; Weight 82.55 kg bb (R); Height 5 ft. 3 in. (160.02 cm) (R); Pain 10/10; 23:33 BP 136 / 89; Pulse 89; Resp 18; Pulse Ox 100% on R/A; Pain 2/10; mg2 21:27 Body Mass Index 32.24 (82.55 kg, 160.02 cm) bb ED Course: 21:08 Patient arrived in ED. am2 21:09 Devan Eric MD is Private Physician. am2 21:21 Triage completed. bb 21:27 Arm band placed on Patient placed in an exam room, on a stretcher, on pulse oximetry. bb 21:31 Haroldo Muse PA is PHCP. cp 21:31 Shiva Young MD is Attending Physician. cp 21:35 Argenis Dias, MARY is Primary Nurse. lp1 21:42 Patient has correct armband on for positive identification. Pulse ox on. NIBP on. lp1 21:45 Urine collected: clean catch specimen, cloudy. mg2 22:10 US Extremity Venous Unilateral Ltd In Process Unspecified. EDMS 22:28 X-ray completed. Portable x-ray completed in exam room. Patient tolerated procedure mh1 well. 22:28 XRAY Knee LEFT 3 view In Process Unspecified. EDMS 23:29 Initial lab(s) drawn, by me, sent to lab. lp1 [id number] 00:43 Saroj Hughes MD is Referral Physician. cp 01:01 No provider procedures requiring assistance completed. Patient did not have IV access mg2 during this emergency room visit. Administered Medications: 01/20 22:38 Drug: TORadol 60 mg Route: IM; Site: right gluteus; mg2 23:25 Follow up: Response: No adverse reaction; Pain is decreased mg2 23:30 Drug: Flexeril 10 mg Route: PO; mg2 01/21 01:00 Follow up: Response: No adverse reaction; Pain is decreased mg2 01:00 Not Given (Patient Refused): NS 0.9% 1000 ml IV at 1 bolus Per protocol; 1000 mL bolus mg2 01:00 Not Given (Patient Refused): Insulin Regular Human 10 units IVP once mg2 Outcome: 00:45 Discharge ordered by . cp 01:00 Discharged to home ambulatory, with crutches, with family. mg2 01:00 Condition: stable 01:00 Discharge instructions given to patient, family, Instructed on discharge instructions, follow up and referral plans. Demonstrated understanding of instructions, follow-up care, crutch walking. 01:01 Patient left the ED. mg2 Signatures: Dispatcher [employer] EDMS Minerva Ferrera mh1 Sera Bautista RN RN bb Argenis Dias RN RN lp1 Haroldo Muse PA PA cp Moreno, Amanda 2 Alfred Muller RN RN mg2
--- NOTE | 2018-01-21 00:46 | EDPHYS ---
Physician Documentation [facility] Name: Lizzeth Mendes Age: 27 yrs Sex: Female : 1990 Arrival Date: 01/20/2018 Time: 21:08 Bed 14 Private MD: Devan Eric ED Physician Shiva Young HPI: 01/20 21:42 This 27 yrs old Female presents to ER via Ambulatory with complaints of Knee cp Pain - rad to thign. 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 bb Historical: - Allergies: 21: Ceclor; bb - Home Meds: 21:27 Humalog 100 unit/mL Sub-Q crtg per sliding scale [Active]; Toujeo SoloStar subcutaneous bb 65 unit nightly [Active]; sulfasalazine 500 mg Oral tab 1 tab 4 times per day [Active]; [place] 10-325 mg Oral tab 1 tab three times a day [Active]; amlodipine 10 mg tab 1 tab once daily [Active]; Abilify 2 mg oral tab daily [Active]; buspirone 15 mg Oral tab 1 tab 2 times per day [Active]; furosemide 20 mg Oral tab 1 tab once daily [Active]; hydroxyzine HCl 10 mg Oral tab twice a day [Active]; Lyrica 100 mg Oral 2 times per day [Active]; pantoprazole 40 mg oral TbEC 1 tab once daily [Active]; Synthroid 75 mcg Oral tab 1 tab once daily [Active]; unisom [Active]; venlafaxine 150 mg oral cp24 1 cap once daily [Active]; - PMHx: 21:27 Anemia; Diabetes - IDDM; neuroapthy; Rheumatoid Arthritis; bb - PSHx: 21:27 dental surgery; bb - Immunization history:: Adult Immunizations up to date. - Social history:: Smoking status: Patient uses tobacco products, smokes one-half pack cigarettes per day, Patient/guardian denies using alcohol, street drugs. - Ebola Screening: : No symptoms or risks identified at this time. ROS: 21:45 Constitutional: Negative for body aches, chills, fever, poor PO intake. cp 21:45 Eyes: Negative for injury, pain, redness, and discharge. cp 21:45 ENT: Negative for drainage from ear(s), ear pain, sore throat, difficulty swallowing, difficulty handling secretions. 21:45 Cardiovascular: Negative for chest pain, edema, palpitations. 21:45 Respiratory: Negative for cough, shortness of breath, wheezing. 21:45 Abdomen/GI: Negative for abdominal pain, nausea, vomiting, and diarrhea, constipation, black/tarry stool, rectal bleeding. 21:45 Back: Negative for pain at rest, pain with movement, radiated pain. 21:45 : Negative for urinary symptoms. 21:45 MS/extremity: Positive for decreased range of motion, pain, swelling, tenderness, of the left knee, Negative for injury or acute deformity, paresthesias. 21:45 Skin: Negative for cellulitis, rash. 21:45 Neuro: Negative for altered mental status, headache, numbness, weakness. 21:45 All other systems are negative. Exam: 21:52 Constitutional: The patient appears in no acute distress, alert, awake, non-toxic, well cp developed, well nourished. 21:52 Head/Face: Normocephalic, atraumatic. cp 21:52 Eyes: Periorbital structures: appear normal, Conjunctiva: normal, no exudate, no injection, Sclera: no appreciated abnormality, Lids and lashes: appear normal, bilaterally. 21:52 ENT: External ear(s): are unremarkable, Nose: is normal, Mouth: Lips: moist, Oral mucosa: pink and intact, moist, Posterior pharynx: is normal, airway is patent, no erythema, no exudate. 21:52 Neck: ROM/movement: is normal, is supple, without pain, no range of motions limitations, no nuchal rigidity. 21:52 Chest/axilla: Inspection: normal, Palpation: is normal, no crepitus, no tenderness. 21:52 Cardiovascular: Rate: tachycardic, Rhythm: regular, Edema: is not appreciated, JVD: is not appreciated. 21:52 Respiratory: the patient does not display signs of respiratory distress, Respirations: normal, no use of accessory muscles, no retractions, no splinting, no tachypnea, labored breathing, is not present, Breath sounds: are clear throughout, no decreased breath sounds, no stridor, no wheezing. 21:52 Abdomen/GI: Exam negative for discomfort, distension, guarding, Inspection: abdomen appears normal. 21:52 Musculoskeletal/extremity: ROM: limited passive range of motion due to pain, in the left knee, Perfusion: the extremity is normally perfused throughout, Sensation intact. Joints: All joints are normal except the suprapatella displays painful range of motion, swelling, tenderness, mild lateral joint line tenderness to palpation. 21:52 Skin: cellulitis, is not appreciated, no rash present. Vital Signs: 21:27 BP 139 / 86; Pulse 114; Resp 16 S; Temp 99.1(O); Pulse Ox 99% on R/A; Weight 82.55 kg bb (R); Height 5 ft. 3 in. (160.02 cm) (R); Pain 10/10; 23:33 BP 136 / 89; Pulse 89; Resp 18; Pulse Ox 100% on R/A; Pain 2/10; mg2 21:27 Body Mass Index 32.24 (82.55 kg, 160.02 cm) bb MDM: 21:31 Patient medically screened. cp 22:00 Differential diagnosis: tendonitis, effusion, septic joint, strain. 01/21 00:44 Data reviewed: vital signs, nurses notes, lab test result(s), radiologic studies, plain cp films, ultrasound, and as a result, I will discharge patient. 00:44 Test interpretation: by ED physician or midlevel provider: plain radiologic studies. cp Counseling: I had a detailed discussion with the patient and/or guardian regarding: the historical points, exam findings, and any diagnostic results supporting the discharge/admit diagnosis, lab results, radiology results, the need for outpatient follow up, a orthopedic surgeon, to return to the emergency department if symptoms worsen or persist or if there are any questions or concerns that arise at home. Response to treatment: the patient's symptoms have mildly improved after treatment. 01/20 22:02 Order name: Urine Dipstick--Ancillary (enter results); Complete Time: 22:35 2 01/20 22:36 Interpretation: Normal except: UGLUC 2+; UKET 1+; UBLD 3+; UPROT 3+; UESTR TRACE. cp 01/20 22:02 Order name: Urine --Ancillary (enter results); Complete Time: 22:35 rg2 01/20 21:39 Order name: XRAY Knee LEFT 3 view cp 07/03 21:39 Order name: US Extremity Venous Unilateral Ltd cp 01/20 22:42 Order name: CBC with Diff; Complete Time: 00:16 cp 01/21 00:17 Interpretation: Normal except: WBC 7.3; RBC 3.37; HGB 9.7; HCT 29.7; PLT 289. cp 01/20 22:42 Order name: BMP; Complete Time: 00:16 cp 01/21 00:17 Interpretation: Normal except: CL 108; GLUC 368; BUN 23; CRE 2.50; GFR 23. cp 01/20 21:39 Order name: Urine Test (obtain specimen); Complete Time: 22:03 cp 01/20 21:39 Order name: Urine Dipstick-Ancillary (obtain specimen); Complete Time: 22:03 cp 01/21 00:21 Order name: Knee Immobilizer: left knee; Complete Time: 01:00 cp 01/21 00:21 Order name: Crutches; Complete Time: 01:00 cp Administered Medications: 01/20 22:38 Drug: TORadol 60 mg Route: IM; Site: right gluteus; mg2 23:25 Follow up: Response: No adverse reaction; Pain is decreased mg2 23:30 Drug: Flexeril 10 mg Route: PO; mg2 01/21 01:00 Follow up: Response: No adverse reaction; Pain is decreased mg2 01:00 Not Given (Patient Refused): NS 0.9% 1000 ml IV at 1 bolus Per protocol; 1000 mL bolus mg2 01:00 Not Given (Patient Refused): Insulin Regular Human 10 units IVP once mg2 Disposition: 01/21/18 00:45 Discharged to Home. Impression: Pain in left knee, Diabetes mellitus due to underlying condition with hyperglycemia, Chronic kidney disease, unspecified. - Condition is Stable. - Discharge Instructions: Elastic Bandage and RICE, Hyperglycemia, Knee Immobilizer, Knee Pain, Chronic Kidney Disease. - Medication Reconciliation Form, Thank You Letter, Antibiotic Education, Prescription Opioid Use, Work release form form. - Follow up: Saroj Hughes MD; When: 2 - 3 days; Reason: Recheck today's complaints. Signatures: Dispatcher [employer] Sera Cm RN RN bb Haroldo Muse PA PA Alfred Smith RN RN mg2 Corrections: (The following items were deleted from the chart) 00:46 00:45 01/21/2018 00:45 Discharged to Home. Impression: Pain in left knee. Condition is cp Stable. Forms are Work release form, Medication Reconciliation Form, Thank You Letter, Antibiotic Education, Prescription Opioid Use. Follow up: Saroj Hughes; When: 2 - 3 days; Reason: Recheck today's complaints. cp 01:01 00:46 01/21/2018 00:45 Discharged to Home. Impression: Pain in left knee; Diabetes mg2 mellitus due to underlying condition with hyperglycemia; Chronic kidney disease, unspecified. Condition is Stable. Discharge Instructions: Elastic Bandage and RICE, Knee Immobilizer, Knee Pain, Hyperglycemia. Forms are Work release form, Medication Reconciliation Form, Thank You Letter, Antibiotic Education, Prescription Opioid Use. Follow up: Saroj Hughes; When: 2 - 3 days; Reason: Recheck today's complaints. cp
[2018-01-21 01:06] VITALS: TEMP 99.1
[2018-01-21 01:07] VITALS: BP 136/89; O2SAT 100
--- NOTE | 2018-01-21 07:17 | RAD REPORT ---
EXAM DESCRIPTION: VAS - Extremity Venous Uni Ltd - 01/20/2018 10:10 pm CLINICAL HISTORY: Leg pain and swelling COMPARISON: None. TECHNIQUE: Real-time sonographic evaluation of the left lower extremity deep venous system was perfo rmed. Grayscale and Doppler assessment performed. FINDINGS: Normal compressibility, flow augmentation, phasic flow and spontaneous flow are identified in the left lower common femoral, superficial femoral and popliteal veins. Deep veins at the ankle a lso clear. No intraluminal filling defects seen. IMPRESSION: No DVT in the left lower extremity.
--- NOTE | 2018-01-21 07:20 | RAD REPORT ---
EXAM DESCRIPTION: RAD - Knee Left 3 View - 01/20/2018 10:30 pm CLINICAL HISTORY: Left-sided knee pain COMPARISON: None. FINDINGS: No fracture, dislocation or periosteal reaction.No joint effusion seen. No joint space katie rowing. No abnormal spurring. No suspicious finding in the soft tissues. IMPRESSION: No acute bone or joint finding. Clinical concerns for internal derangement or occult bony injury could be further assessed with MR im aging.
== END 2018-01-21 01:01 | disposition home or self-care (01) ==
LOC: ER 21:04
DX: M25.562 Pain in left knee (principal); N18.9 Chronic kidney disease, unspecified; Z79.4 Long term (current) use of insulin; E08.65 Diabetes mellitus due to underlying condition with hyperglycemia; E08.40 Diabetes mellitus due to underlying condition with diabetic neuropathy, unspecified; E08.22 Diabetes mellitus due to underlying condition with diabetic chronic kidney disease; Z88.3 Allergy status to other anti-infective agents
CPT/HCPCS: 36415; 80048; 81003; 81025; 85025; 93971; 96372; 99284

== ENCOUNTER 2018-01-31 19:46 | Emergency (ER) | payer OTHER ==
--- OUTSIDE RECORDS SUMMARY | 2018-01-31 19:47 | XMS REPORT | Continuity of Care Document ---
[...] Number For Provider Date Date Visit Outpatient [id number] TOMMY HASTINGS 07/09 [facility] /2016 [place] Outpatient [id number] TOMMY HASTINGS 08/07 [facility] /2017 [place] Procedures Procedure Code Date Perfomer Comments Source
[2018-01-31] MEDS ORDERED: NA CHLORIDE 0.9% 1,000 ML ONE (20:56)
[2018-01-31 21:04] LABS: Absolute Monocytes 0.7 K/uL (0.1-1.3); Absolute Neutrophil 4.8 K/uL (1.8-8.0); Basophils % 0.7 % (0-1.3); Eosinophils % 4.5 % (0-4.4); Hematocrit 29.9 % (36.0-45.0); Lymphocytes % 33.5 % (15.3-44.8); MCH 28.8 pg (27.0-35.0); MCV 86.6 fL (80-100); MPV 7.9 fL (7.6-11.3); Monocytes % 7.5 % (3.3-12.3); RBC Red Blood Cell Count 3.45 M/uL (3.86-4.86)
[2018-01-31] MEDS ORDERED: ONDANSETRON 4 MG/2 ML VIAL ONE (21:06)
[2018-01-31] MEDS ORDERED: FAMOTIDINE 20 MG/2 ML VIAL IV ONE (21:06)
[2018-01-31 21:15] LABS: Urine Bacteria LOADED /HPF (<20); Urine Culture Reflex Order REFLEXED
[2018-01-31 21:17] LABS: Urine Blood 2+ (NEG); Urine Glucose 2+ (NEG); Urine Protein 3+ (NEG); Urine Specific Gravity >1.030 (1.005-1.030); Urine pH 5.5 (5.0-7.0)
[2018-01-31 21:25] LABS: ALT/SGPT 34 U/L (12-78); AST/SGOT 24 U/L (15-37); Alkaline Phosphatase 96 U/L (45-117); BUN Blood Urea Nitrogen 26 mg/dL (7-18); Bicarbonate 25 mmol/L (21-32); Bilirubin Direct < 0.1 mg/dL (0-0.2); Bilirubin Total 0.1 mg/dL (0.2-1.0); Glucose Level 224 mg/dL (74-106); Lipase 75 U/L (73-393); Potassium 3.6 mmol/L (3.5-5.1); Protein, Total 6.9 g/dL (6.4-8.2); Sodium Level 141 mmol/L (136-145)
[2018-01-31] MEDS ORDERED: Levofloxacin500mg IV 500 MG/100 ML BAG IV ONE (21:38)
--- NOTE | 2018-01-31 22:09 | EDPHYS ---
Physician Documentation [facility] Name: Lizzeth Mendes Age: 27 yrs Sex: Female : 1990 Arrival Date: 01/31/2018 Time: 19:47 Bed 24 Private MD: Devan Eric ED Physician Alexander Vega HPI: 01/31 20:56 This 27 yrs old Female presents to ER via Ambulatory with complaints of jr8 possible kidney infection+. 20:56 The patient presents to the emergency department with nausea, vomiting. Onset: The jr8 symptoms/episode began/occurred acutely, 3 day(s) ago. Possible causes: unknown. The symptoms are aggravated by nothing. The symptoms are alleviated by nothing. Associated signs and symptoms: Pertinent positives: dysuria. Severity of symptoms: At their worst the symptoms were moderate in the emergency department the symptoms are unchanged. The patient has experienced a previous episode. The patient has not recently seen a physician. 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 aj1 Historical: - Allergies: 20:02 Ceclor; aj1 20:02 NSAIDS; aj1 - Home Meds: 20:02 Abilify 2 mg Oral tab daily [Active]; amlodipine 10 mg tab 1 tab once daily [Active]; aj1 buspirone 15 mg Oral tab 1 tab 2 times per day [Active]; furosemide 20 mg Oral tab 1 tab once daily [Active]; Humalog 100 unit/mL Sub-Q crtg per sliding scale [Active]; hydroxyzine HCl 10 mg Oral tab twice a day [Active]; Lyrica 100 mg Oral 2 times per day [Active]; [place] 10-325 mg Oral tab 1 tab three times a day [Active]; pantoprazole 40 mg Oral TbEC 1 tab once daily [Active]; sulfasalazine 500 mg Oral tab 1 tab 4 times per day [Active]; Synthroid 75 mcg Oral tab 1 tab once daily [Active]; Toujeo SoloStar subcutaneous 65 unit nightly [Active]; unisom [Active]; venlafaxine 150 mg Oral cp24 1 cap once daily [Active]; - PMHx: 20:02 Anemia; Diabetes - IDDM; neuroapthy; Rheumatoid Arthritis; aj1 - Immunization history:: Flu vaccine is up to date. - Social history:: Smoking status: Patient uses tobacco products, 2-3 cigarettes per day. - Ebola Screening: : Patient denies travel to an Ebola-affected area in the 21 days before illness onset. ROS: 20:56 Eyes: Negative for injury, pain, redness, and discharge, ENT: Negative for injury, jr8 pain, and discharge, Neck: Negative for injury, pain, and swelling, Cardiovascular: Negative for chest pain, palpitations, and edema, Respiratory: Negative for shortness of breath, cough, wheezing, and pleuritic chest pain, Back: Negative for injury and pain, MS/Extremity: Negative for injury and deformity, Skin: Negative for injury, rash, and discoloration, Neuro: Negative for headache, weakness, numbness, tingling, and seizure. 20:56 Abdomen/GI: Positive for nausea and vomiting, Negative for abdominal pain, diarrhea, abdominal cramps, abdominal distension, anorexia, dysphagia, hematemesis, black/tarry stool, rectal pain, rectal bleeding, bowel incontinence, flatulence. 20:56 : Positive for urinary symptoms, Negative for vaginal bleeding, vaginal discharge, vaginal itching, menstrual abnormality, missed period. Exam: 20:56 ENT: Nares patent. No nasal discharge, no septal abnormalities noted. Tympanic jr8 membranes are normal and external auditory canals are clear. Oropharynx with no redness, swelling, or masses, exudates, or evidence of obstruction, uvula midline. Mucous membranes moist. Neck: Trachea midline, no thyromegaly or masses palpated, and no cervical lymphadenopathy. Supple, full range of motion without nuchal rigidity, or vertebral point tenderness. No Meningismus. Cardiovascular: Regular rate and rhythm with a normal S1 and S2. No gallops, murmurs, or rubs. Normal PMI, no JVD. No pulse deficits. Respiratory: Lungs have equal breath sounds bilaterally, clear to auscultation and percussion. No rales, rhonchi or wheezes noted. No increased work of breathing, no retractions or nasal flaring. Skin: Warm, dry with normal turgor. Normal color with no rashes, no lesions, and no evidence of cellulitis. MS/ Extremity: Pulses equal, no cyanosis. Neurovascular intact. Full, normal range of motion. Neuro: Awake and alert, GCS 15, oriented to person, place, time, and situation. Cranial nerves II-XII grossly intact. Motor strength 5/5 in all extremities. Sensory grossly intact. Cerebellar exam normal. Normal gait. 20:56 Abdomen/GI: Soft, non-tender, with normal bowel sounds. No distension or tympany. No guarding or rebound. No evidence of tenderness throughout. 20:56 Back: pain, that is mild, of the right flank, ROM is normal, normal spinal alignment noted, CVA tenderness, that is mild, is noted on the right. Vital Signs: 20:02 BP 105 / 65; Pulse 103; Resp 18; Temp 98.2(T); Pulse Ox 97% on R/A; Weight 77.11 kg; aj1 Height 5 ft. 4 in. (162.56 cm); Pain 5/10; 20:02 Body Mass Index 29.18 (77.11 kg, 162.56 cm) aj1 MDM: 20:29 Patient medically screened. jr8 22:02 Data reviewed: vital signs, nurses notes, lab test result(s), and as a result, I will jr8 discharge patient. Data interpreted: Pulse oximetry: on room air is 97 %. Interpretation: normal. Counseling: I had a detailed discussion with the patient and/or guardian regarding: the historical points, exam findings, and any diagnostic results supporting the discharge/admit diagnosis, lab results, the need for outpatient follow up, a family practitioner, nephrology. ED course: Detailed discussion with patient about renal function. How we will have to adjust antibiotics and need for close f/u. 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 Patient without white cell count. Able to tolerate fluids by mouth. . 01/31 20:30 Order name: Basic Metabolic Panel; Complete Time: 21:01/31 20:30 Order name: CBC with Diff; Complete Time: 21:37 01/31 20:30 Order name: Creatinine for Radiology; Complete Time: :01/31 20:30 Order name: Hepatic Function; Complete Time: :01/31 20:30 Order name: Lipase; Complete Time: 21:01/31 20:30 Order name: Urine Microscopic Only; Complete Time: 21:01/31 20:30 Order name: Urine Test (obtain specimen); Complete Time: 20:49 [facility] 01/31 20:53 Order name: Urine Dipstick--Ancillary (enter results); Complete Time: 21: 01/31 20:53 Order name: Urine --Ancillary (enter results); Complete Time: 21: 01/31 21:16 Order name: Urine Culture [facility] 01/31 20:30 Order name: IV Saline Lock; Complete Time: 20:49 [facility] 01/31 20:30 Order name: Labs collected and sent; Complete Time: 20:49 [facility] 01/31 20:30 Order name: Urine Dipstick-Ancillary (obtain specimen); Complete Time: 20:49 Administered Medications: 20:59 Drug: NS 0.9% 1000 ml Route: IV; Rate: 1000 ml; Site: right antecubital; rv 23:06 Follow up: Response: No adverse reaction; IV Status: Completed infusion rv 21:09 Drug: Zofran 4 mg Route: IVP; Site: right antecubital; rv 23:06 Follow up: Response: No adverse reaction rv 21:10 Drug: Pepcid 20 mg Route: IVP; Site: right antecubital; rv 23:06 Follow up: Response: No adverse reaction rv 21:45 Drug: LevaQUIN 500 mg Volume: 100 ml; Route: IVPB; Infused Over: 60 mins; Site: right rv antecubital; 23:06 Follow up: Response: No adverse reaction; IV Status: Completed infusion rv Disposition: 02/01 01:10 Co-signature as Attending Physician, Alexander Vega MD. rn Disposition: 01/31/18 22:08 Discharged to Home. Impression: Acute tubulo-interstitial nephritis, Chronic kidney disease (CKD). - Condition is Stable. - Discharge Instructions: Pyelonephritis, Adult, Chronic Kidney Disease. - Prescriptions for Levaquin 500 mg Oral Tablet - take 1 tablet by ORAL route as directed To take one tablet by mouth every 48 hours until complete; 5 tablet. Zofran 4 mg Oral Tablet - take 1 tablet by ORAL route every 12 hours As needed; 20 tablet. - Medication Reconciliation Form, Thank You Letter, Antibiotic Education, Prescription Opioid Use, Work release form form. - Follow up: Devan Eric MD; When: 1 - 2 days; Reason: Recheck today's complaints, Continuance of care, Re-evaluation by your physician. - Problem is new. - Symptoms have improved. Signatures: Dispatcher [employer] EDMS Shari Ho RN RN aj1 Alexander Vega MD MD rn Roszak, Josh, PA PA jr8 Alexis Arteaga RN RN rv Corrections: (The following items were deleted from the chart) 01/31 22:15 22:02 ED course: Detailed discussion with patient about renal function. How we will jr8 have to adjust antibiotics and need for close f/u. 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 jr8 23:07 22:08 01/31/2018 22:08 Discharged to Home. Impression: Acute tubulo-interstitial rv nephritis; Chronic kidney disease (CKD). Condition is Stable. Forms are Medication Reconciliation Form, Thank You Letter, Antibiotic Education, Prescription Opioid Use. Follow up: Devan Eric; When: 1 - 2 days; Reason: Recheck today's complaints, Continuance of care, Re-evaluation by your physician. Problem is new. Symptoms have improved. jr8
--- NOTE | 2018-01-31 22:09 | ER ---
Nurse's Notes [facility] Name: Lizzeth Mendes Age: 27 yrs Sex: Female : 1990 Arrival Date: 01/31/2018 Time: 19:47 Bed 24 Private MD: Devan Eric Diagnosis: Acute tubulo-interstitial nephritis;Chronic kidney disease (CKD) Presentation: 01/31 19:58 Presenting complaint: Patient states: "I've been throwing up all day, I think I might aj1 have a kidney infection because the last time I felt like this it was a kidney infection" Reports dizziness,dysuria, urinary frequency. Reports sore throat from vomiting, but otherwise denies pain. States that she checked her blood sugar today and it was 136. Transition of care: patient was not received from another setting of care. Onset of symptoms was January 24, 2018. Risk Assessment: Do you want to hurt yourself or someone else? Patient reports no desire to harm self or others. Initial Sepsis Screen: Does the patient meet any 2 criteria? No. Patient's initial sepsis screen is negative. Does the patient have a suspected source of infection? No. Patient's initial sepsis screen is negative. Care prior to arrival: None. 19:58 Method Of Arrival: Ambulatory aj1 19:58 Acuity: SHANNON 3 aj1 Triage Assessment: 20:02 General: Appears in no apparent distress. uncomfortable, Behavior is calm, cooperative, aj1 appropriate for age. Pain: Complains of pain in left aspect of posterior pharynx and right aspect of posterior pharynx Pain does not radiate. Pain currently is 6 out of 10 on a pain scale. Quality of pain is described as burning. Neuro: Level of Consciousness is awake, alert, obeys commands, Speech is normal, Facial symmetry appears normal. Cardiovascular: Patient's skin is warm and dry. Respiratory: Airway is patent Respiratory effort is even, unlabored, Respiratory pattern is regular, symmetrical. GI: Reports diarrhea, nausea, vomiting. : Reports burning with urination, urinary frequency. Derm: Skin is pink, warm \\T\\ dry. normal. Musculoskeletal: Circulation, motion, and sensation intact. 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 - control method aj1 Historical: - Allergies: 20:02 Ceclor; aj1 20:02 NSAIDS; aj1 - Home Meds: 20:02 Abilify 2 mg Oral tab daily [Active]; amlodipine 10 mg tab 1 tab once daily [Active]; aj1 buspirone 15 mg Oral tab 1 tab 2 times per day [Active]; furosemide 20 mg Oral tab 1 tab once daily [Active]; Humalog 100 unit/mL Sub-Q crtg per sliding scale [Active]; hydroxyzine HCl 10 mg Oral tab twice a day [Active]; Lyrica 100 mg Oral 2 times per day [Active]; Pomerene 10-325 mg Oral tab 1 tab three times a day [Active]; pantoprazole 40 mg Oral TbEC 1 tab once daily [Active]; sulfasalazine 500 mg Oral tab 1 tab 4 times per day [Active]; Synthroid 75 mcg Oral tab 1 tab once daily [Active]; Toujeo SoloStar subcutaneous 65 unit nightly [Active]; unisom [Active]; venlafaxine 150 mg Oral cp24 1 cap once daily [Active]; - PMHx: 20:02 Anemia; Diabetes - IDDM; neuroapthy; Rheumatoid Arthritis; aj1 - Immunization history:: Flu vaccine is up to date. - Social history:: Smoking status: Patient uses tobacco products, 2-3 cigarettes per day. - Ebola Screening: : Patient denies travel to an Ebola-affected area in the 21 days before illness onset. Screenin:01 Abuse screen: Denies threats or abuse. Denies injuries from another. Nutritional rv screening: No deficits noted. Tuberculosis screening: No symptoms or risk factors identified. Fall Risk None identified. Assessment: 20:59 General: Appears in no apparent distress. comfortable, Behavior is calm, cooperative. rv Pain: Denies pain. Neuro: Level of Consciousness is awake, alert, obeys commands, Oriented to person, place, time, situation. Cardiovascular: Heart tones S1 S2 present. Respiratory: Airway is patent. GI: No signs and/or symptoms were reported involving the gastrointestinal system. : Reports burning with urination, since 3 DAYS AGO urgency. EENT: No signs and/or symptoms were reported regarding the EENT system. Derm: Skin is intact. Vital Signs: 20:02 BP 105 / 65; Pulse 103; Resp 18; Temp 98.2(T); Pulse Ox 97% on R/A; Weight 77.11 kg; aj1 Height 5 ft. 4 in. (162.56 cm); Pain 5/10; 20:02 Body Mass Index 29.18 (77.11 kg, 162.56 cm) aj1 ED Course: 19:47 Patient arrived in ED. es 19:47 Devan Eric MD is Private Physician. es 20:00 Triage completed. aj1 20:02 Patient placed in waiting room, Patient notified of wait time. aj1 20:29 Siva Dale PA is PHCP. jr8 20:29 Alexander Vega MD is Attending Physician. jr8 21:01 Arm band placed on left wrist. rv 21:01 Patient has correct armband on for positive identification. Placed in gown. Bed in low rv position. Call light in reach. Side rails up X 1. Pulse ox on. NIBP on. 22:08 Devan Eric MD is Referral Physician. jr8 23:06 No provider procedures requiring assistance completed. IV discontinued, bleeding rv controlled, No redness/swelling at site. Pressure dressing applied. Administered Medications: 20:59 Drug: NS 0.9% 1000 ml Route: IV; Rate: 1000 ml; Site: right antecubital; rv 23:06 Follow up: Response: No adverse reaction; IV Status: Completed infusion rv 21:09 Drug: Zofran 4 mg Route: IVP; Site: right antecubital; rv 23:06 Follow up: Response: No adverse reaction rv 21:10 Drug: Pepcid 20 mg Route: IVP; Site: right antecubital; rv 23:06 Follow up: Response: No adverse reaction rv 21:45 Drug: LevaQUIN 500 mg Volume: 100 ml; Route: IVPB; Infused Over: 60 mins; Site: right rv antecubital; 23:06 Follow up: Response: No adverse reaction; IV Status: Completed infusion rv Outcome: 22:08 Discharge ordered by . jr8 23:07 Discharged to home ambulatory. rv 23:07 Condition: improved 23:07 Discharge instructions given to patient, Instructed on discharge instructions, follow up and referral plans. medication usage, Prescriptions given X 2. 23:07 Patient left the ED. rv Addendum: 02/03/2018 15:46 Addendum: Culture Results: Positive urine culture. Bacteria is resistant to, has i w intermediate sensitivity, or is not tested against prescribed antibiotics. Report given to CELI for further evaluation and then to workforce management manager for follow up with patient. Phone call Prescription called-in to pharmacy of choice. Macrobid 100 mg PO BID #20, no refills, called into [facility]. Signatures: Shari Ho RN RN aj1 Abbey Moya Irene, RN RN iw Siva Dale PA PA jr8 Alexis Arteaga RN RN rv
[2018-01-31 23:17] VITALS: BP 105/65; TEMP 98.2; O2SAT 97
== END 2018-01-31 23:07 | disposition home or self-care (01) ==
LOC: ER 19:46
DX: N10 Acute pyelonephritis (principal); E11.40 Type 2 diabetes mellitus with diabetic neuropathy, unspecified; E11.22 Type 2 diabetes mellitus with diabetic chronic kidney disease; N18.9 Chronic kidney disease, unspecified; Z79.4 Long term (current) use of insulin; M06.9 Rheumatoid arthritis, unspecified
CPT/HCPCS: 36415; 80048; 80076; 81003; 81015; 81025; 83690; 85025; 87077; 87086; 87088; 87186; 96361; 96365; 96375; 99283; J2405; J7030

== ENCOUNTER 2018-03-02 20:00 | Inpatient (IN) | payer OTHER, SELFPAY ==
--- OUTSIDE RECORDS SUMMARY | 2018-03-02 20:01 | XMS REPORT | Continuity of Care Document ---
[...] Number For Provider Date Date Visit Outpatient [id number] TOMMY HASTINGS 07/09 [facility] /2016 [place] Outpatient [id number] TOMMY HASTINGS 08/07 [facility] /2017 [place] Procedures Procedure Code Date Perfomer Comments Source
[2018-03-02] MEDS ORDERED: PROMETHAZINE 25 MG/ML VIAL ONE (20:37)
[2018-03-02] MEDS ORDERED: NA CHLORIDE 0.9% 2,000 ML ONE (20:38)
[2018-03-02] MEDS ORDERED: FENTANYL CITR 100 MCG/2 ML ONE (20:38)
[2018-03-02 20:53] LABS: Absolute Lymphocytes (CBC) 2.6 K/uL (0.7-4.9); Absolute Monocytes 0.7 K/uL (0.1-1.3); Absolute Neutrophil 8.5 K/uL (1.8-8.0); Basophils % 0.6 % (0-1.3); Eosinophils % 1.8 % (0-4.4); Lymphocytes % 21.3 % (15.3-44.8); MCH 28.7 pg (27.0-35.0); MCV 95.5 fL (80-100); Monocytes % 5.5 % (3.3-12.3); RBC Red Blood Cell Count 3.87 M/uL (3.86-4.86)
[2018-03-02 21:09] LABS: Potassium 5.9 mmol/L (3.5-5.1)
--- NOTE | 2018-03-02 21:21 | RAD REPORT ---
EXAM DESCRIPTION: RAD - Chest Single View - 03/02/2018 8:39 pm CLINICAL HISTORY: Chest pain COMPARISON: January 2017 TECHNIQUE: AP portable chest image was obtained 7 hours . FINDINGS: Lungs are clear. Heart and vasculature are normal. No measurable pleural effusion and no p neumothorax. No gross bony abnormality seen. No acute aortic findings suspected. IMPRESSION: No acute cardiopulmonary process. No significant interval change.
[2018-03-02 21:22] LABS: Arterial Blood Carboxyhemoglob 1.2 % (0-1.5); Blood Gas Oxyhemoglobin 94.6 % (94-97); Blood O2 Saturation 96.7 % (92-98.5)
--- NOTE | 2018-03-02 21:22 | EDPHYS ---
Physician Documentation [facility] Name: Lizzeth Mendes Age: 27 yrs Sex: Female : 1990 Arrival Date: 03/02/2018 Time: 20:01 Bed 13 Private MD: Devan Eric ED Physician Jacob Campos HPI: 03/02 20:36 This 27 yrs old Female presents to ER via Ambulatory with complaints of Chest snw Tightness, High Blood Sugar. 20:36 The patient or guardian reports chest pain that is located primarily in the anterior snw chest wall. The pain does not radiate. Associated signs and symptoms: The patient has no apparent associated signs or symptoms. The chest pain is described as sharp. Duration: The patient or guardian reports multiple episodes. Severity of pain: At its worst the pain was mild moderate. The patient has experienced a previous episode. The patient has not recently seen a physician, the patient's primary care provider is Dr. Dr. Eric. IDDM since age 10. Changed site of insulin pump this am. No recent fever.. 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 - IUD aj Historical: - Allergies: 20:14 NSAIDS; aj 20:14 Ceclor; aj - Home Meds: 20:14 Abilify 2 mg Oral tab daily [Active]; amlodipine 10 mg tab 1 tab once daily [Active]; aj buspirone 15 mg Oral tab 1 tab 2 times per day [Active]; furosemide 20 mg Oral tab 1 tab once daily [Active]; Humalog 100 unit/mL Sub-Q crtg per sliding scale [Active]; hydroxyzine HCl 10 mg Oral tab twice a day [Active]; Lyrica 100 mg Oral 2 times per day [Active]; Durham 10-325 mg Oral tab 2 tab every 6 hours [Active]; pantoprazole 40 mg Oral TbEC 1 tab once daily [Active]; Synthroid 75 mcg Oral tab 1 tab once daily [Active]; Toujeo SoloStar subcutaneous 65 unit nightly [Active]; unisom [Active]; venlafaxine 150 mg Oral cp24 1 cap once daily [Active]; - PMHx: 20:14 Anemia; Diabetes - IDDM; neuroapthy; Rheumatoid Arthritis; aj - PSHx: 20:14 None; aj - Immunization history:: Adult Immunizations up to date. - Social history:: Smoking status: Patient uses tobacco products, denies chronic smoking, but will smoke occasionally. - Ebola Screening: : Patient negative for fever greater than or equal to 101.5 degrees Fahrenheit, and additional compatible Ebola Virus Disease symptoms Patient denies exposure to infectious person Patient denies travel to an Ebola-affected area in the 21 days before illness onset No symptoms or risks identified at this time. ROS: 20:35 Eyes: Negative for injury, pain, redness, and discharge, ENT: Negative for injury, snw pain, and discharge, Neck: Negative for injury, pain, and swelling, Respiratory: Negative for shortness of breath, cough, wheezing, and pleuritic chest pain, Back: Negative for injury and pain, : Negative for injury, bleeding, discharge, and swelling, MS/Extremity: Negative for injury and deformity, Skin: Negative for injury, rash, and discoloration, Neuro: Negative for headache, weakness, numbness, tingling, and seizure. 20:35 Constitutional: Positive for body aches, fatigue, malaise, poor PO intake, Negative for fever. 20:35 Cardiovascular: Positive for chest pain. 20:35 Abdomen/GI: Positive for nausea and vomiting. Exam: 20:35 Head/Face: Normocephalic, atraumatic. Eyes: Pupils equal round and reactive to light, snw extra-ocular motions intact. Lids and lashes normal. Conjunctiva and sclera are non-icteric and not injected. Cornea within normal limits. Periorbital areas with no swelling, redness, or edema. ENT: Nares patent. No nasal discharge, no septal abnormalities noted. Tympanic membranes are normal and external auditory canals are clear. Oropharynx with no redness, swelling, or masses, exudates, or evidence of obstruction, uvula midline. Mucous membranes moist. Neck: Trachea midline, no thyromegaly or masses palpated, and no cervical lymphadenopathy. Supple, full range of motion without nuchal rigidity, or vertebral point tenderness. No Meningismus. Chest/axilla: Normal chest wall appearance and motion. Nontender with no deformity. No lesions are appreciated. 20:35 Respiratory: Lungs have equal breath sounds bilaterally, clear to auscultation and percussion. No rales, rhonchi or wheezes noted. No increased work of breathing, no retractions or nasal flaring. Abdomen/GI: Soft, non-tender, with normal bowel sounds. No distension or tympany. No guarding or rebound. No evidence of tenderness throughout. Back: No spinal tenderness. No costovertebral tenderness. Full range of motion. Skin: Warm, dry with normal turgor. Normal color with no rashes, no lesions, and no evidence of cellulitis. MS/ Extremity: Pulses equal, no cyanosis. Neurovascular intact. Full, normal range of motion. Neuro: Awake and alert, GCS 15, oriented to person, place, time, and situation. Cranial nerves II-XII grossly intact. Motor strength 5/5 in all extremities. Sensory grossly intact. Cerebellar exam normal. Normal gait. 20:35 Constitutional: The patient appears alert, awake, uncomfortable. 20:35 Cardiovascular: Rate: tachycardic, Rhythm: regular, Pulses: no pulse deficits are appreciated, Heart sounds: normal, Edema: is not appreciated. Vital Signs: 20:14 BP 184 / 93; Pulse 125; Resp 20; Temp 98.4; Pulse Ox 100% on R/A; Weight 81.65 kg; aj Height 5 ft. 4 in. (162.56 cm); 21:08 Pulse 114; Resp 16; Pulse Ox 100% on R/A; ak1 21:43 BP 125 / 65; Pulse 119; Resp 16; Temp 98.6(TE); Pulse Ox 100% on R/A; Pain 3/10; ak1 22:19 BP 128 / 66; Pulse 116; Resp 16; Pulse Ox 100% on R/A; Pain 2/10; ak1 20:14 Body Mass Index 30.90 (81.65 kg, 162.56 cm) aj MDM: 20:27 Patient medically screened. snw 21:22 Data reviewed: vital signs, nurses notes. Data interpreted: Pulse oximetry: on room air snw is 100 %. Interpretation: normal. Counseling: I had a detailed discussion with the patient and/or guardian regarding: the historical points, exam findings, and any diagnostic results supporting the discharge/admit diagnosis, lab results, radiology results, the need for further work-up and treatment in the hospital. Physician consultation: Devan Eric MD was called at 21:22, was contacted at 21:22, regarding admission, to the ICU. 03/02 20:29 Order name: ABG; Complete Time: 21:31 snw 03/02 20:29 Order name: CBC with Diff; Complete Time: 21:10 snw 03/02 20:29 Order name: Chem 7; Complete Time: 21:10 snw 03/02 20:29 Order name: Blood Culture Adult (2) snw 03/02 21:09 Order name: Urine Dipstick--Ancillary (enter results) rg2 03/02 21:09 Order name: Urine --Ancillary (enter results); Complete Time: 21:56 rg2 03/02 20:29 Order name: Chest Single View XRAY; Complete Time: 21:23 snw 03/02 21:09 Order name: Urine Dipstick-Ancillary; Complete Time: 21:56 EDMS 03/02 22:26 Order name: Glucose jd3 03/02 23:27 Order name: Blood Culture EDMS 03/02 21:17 Order name: NPO; Complete Time: 21:20 snw Administered Medications: 20:43 Drug: NS 0.9% 1000 ml Route: IV; Rate: 1 bolus; Site: right antecubital; ak1 21:41 Follow up: IV Status: Completed infusion ak1 20:43 Drug: Phenergan 25 mg Route: IVP; Site: right antecubital; ak1 21:14 Follow up: Response: No adverse reaction ak1 20:43 Drug: NS 0.9% 1000 ml Route: IV; Rate: 1 bolus; Site: right antecubital; ak1 22:30 Follow up: IV Status: Infusion continued upon admission ak1 20:54 Drug: fentaNYL (PF) 25 mcg Route: IVP; Site: right forearm; ak1 21:14 Follow up: Response: No adverse reaction ak1 21:21 Not Given (verbal orders to cancel ): Albuterol 2.5 mg Inhalation every 20 minutes x3 ak1 21:35 Drug: Insulin Drip - (Insulin Regular Human 100 units, NS 0.9% 100 ml) {Co-Signature: ak1 jd3 (David Bowman RN).} Route: IV; Rate: 8 units/hr; Site: right forearm; 22:40 Follow up: IV Status: Infusion continued upon admission ak1 Point of Care Testing: Blood Glucose: 20:29 Blood Glucose: High (>450 mg/dL); ak1 Ranges: Critical Glucose Levels:Adult <50 mg/dl or >400 mg/dl <40 mg/dl or >180 mg/dl Disposition: 03/03 22:18 Co-signature as Attending Physician, Jacob Campos MD I agree with the assessment and ps1 plan of care. Disposition: 03/02/18 21:21 Hospitalization ordered by Devan Eric for Inpatient Admission. Preliminary diagnosis are Type 1 diabetes mellitus with ketoacidosis without coma, Acute kidney failure, unspecified. - Bed requested for Intensive Care Unit. - Status is Inpatient Admission. ak1 - Condition is Stable. - Problem is an acute exacerbation. - Symptoms are unchanged. UTI on Admission? No Signatures: Dispatcher [employer] EDMS Valerie Shelton rg2 Yusra Spicer, RN RN aj Maura Toledo, ELECTRICAL PRODUCTS SALES ENGINEER-C ELECTRICAL PRODUCTS SALES ENGINEER-Csnw Courtney Abraham RN RN ak1 Jacob Campos MD MD ps1 David Bowman RN jd3 Corrections: (The following items were deleted from the chart) 03/02 21:24 21:21 Hospitalization Ordered by Devan Eric MD for Inpatient Admission. Preliminary snw diagnosis is Type 1 diabetes mellitus with ketoacidosis without coma. Bed requested for Intensive Care Unit. Status is Inpatient Admission. Condition is Stable. Problem is an acute exacerbation. Symptoms are unchanged. UTI on Admission? No. snw 21:47 21:24 03/02/2018 21:21 Hospitalization Ordered by Devan Eric MD for Inpatient rg2 Admission. Preliminary diagnosis is Type 1 diabetes mellitus with ketoacidosis without coma; Acute kidney failure, unspecified. Bed requested for Intensive Care Unit. Status is Inpatient Admission. Condition is Stable. Problem is an acute exacerbation. Symptoms are unchanged. UTI on Admission? No. snw 23:28 21:47 03/02/2018 21:21 Hospitalization Ordered by Devan Eric MD for Inpatient ak1 Admission. Preliminary diagnosis is Type 1 diabetes mellitus with ketoacidosis without coma; Acute kidney failure, unspecified. Bed requested for Intensive Care Unit. Status is Inpatient Admission. Condition is Stable. Problem is an acute exacerbation. Symptoms are unchanged. UTI on Admission? No. rg2
--- NOTE | 2018-03-02 21:22 | ER ---
Nurse's Notes [facility] Name: Lizzeth Mendes Age: 27 yrs Sex: Female : 1990 Arrival Date: 03/02/2018 Time: 20:01 Bed 13 Private MD: Devan Eric Diagnosis: Type 1 diabetes mellitus with ketoacidosis without coma;Acute kidney failure, unspecified Presentation: 03/02 20:11 Presenting complaint: Patient states: "My blood sugar was reading high on my meter at home and I had chest pain that started just before I got here.". Transition of care: patient was not received from another setting of care. Onset of symptoms was March 02, 2018. Risk Assessment: Do you want to hurt yourself or someone else? Patient reports no desire to harm self or others. Initial Sepsis Screen: Does the patient meet any 2 criteria? No. Patient's initial sepsis screen is negative. Does the patient have a suspected source of infection? No. Patient's initial sepsis screen is negative. Care prior to arrival: None. 20:11 Method Of Arrival: Ambulatory 20:11 Acuity: SHANNON 2 Triage Assessment: 20:14 General: Appears in no apparent distress. uncomfortable, Behavior is calm, cooperative, aj appropriate for age. Pain: Complains of pain in chest. Neuro: Level of Consciousness is awake, alert, obeys commands, Oriented to person, place, time, situation, Appropriate for age. Cardiovascular: Reports chest pain, Capillary refill < 3 seconds in bilateral fingers Patient's skin is warm and dry. Rhythm is sinus tachycardia. Respiratory: Airway is patent Respiratory effort is even, unlabored, Respiratory pattern is regular, symmetrical. GI: No signs and/or symptoms were reported involving the gastrointestinal system. Derm: Skin is intact, is healthy with good turgor, Skin is pink, warm \\T\\ dry. normal. 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 - IUD aj Historical: - Allergies: 20:14 NSAIDS; aj 20:14 Ceclor; aj - Home Meds: 20:14 Abilify 2 mg Oral tab daily [Active]; amlodipine 10 mg tab 1 tab once daily [Active]; aj buspirone 15 mg Oral tab 1 tab 2 times per day [Active]; furosemide 20 mg Oral tab 1 tab once daily [Active]; Humalog 100 unit/mL Sub-Q crtg per sliding scale [Active]; hydroxyzine HCl 10 mg Oral tab twice a day [Active]; Lyrica 100 mg Oral 2 times per day [Active]; Casanova 10-325 mg Oral tab 2 tab every 6 hours [Active]; pantoprazole 40 mg Oral TbEC 1 tab once daily [Active]; Synthroid 75 mcg Oral tab 1 tab once daily [Active]; Toujeo SoloStar subcutaneous 65 unit nightly [Active]; unisom [Active]; venlafaxine 150 mg Oral cp24 1 cap once daily [Active]; - PMHx: 20:14 Anemia; Diabetes - IDDM; neuroapthy; Rheumatoid Arthritis; aj - PSHx: 20:14 None; aj - Immunization history:: Adult Immunizations up to date. - Social history:: Smoking status: Patient uses tobacco products, denies chronic smoking, but will smoke occasionally. - Ebola Screening: : Patient negative for fever greater than or equal to 101.5 degrees Fahrenheit, and additional compatible Ebola Virus Disease symptoms Patient denies exposure to infectious person Patient denies travel to an Ebola-affected area in the 21 days before illness onset No symptoms or risks identified at this time. Screenin:07 Abuse screen: Denies threats or abuse. Denies injuries from another. Nutritional ak1 screening: No deficits noted. Tuberculosis screening: No symptoms or risk factors identified. Fall Risk None identified. Assessment: 21:07 Reassessment: Patient appears in no apparent distress at this time. No changes from ak1 previously documented assessment. Patient states symptoms have improved. 21:08 Pain: Pain does not radiate. Pain began suddenly. ak1 21:21 Reassessment: pt insulin pump removed per verbal orders. pt informed of need to start ak1 insulin drip as well as admission status. 22:17 Reassessment: Patient appears in no apparent distress at this time. No changes from ak1 previously documented assessment. Patient is alert, oriented x 3, equal unlabored respirations, skin warm/dry/pink. Patient states feeling better. Patient states symptoms have improved. Vital Signs: 20:14 BP 184 / 93; Pulse 125; Resp 20; Temp 98.4; Pulse Ox 100% on R/A; Weight 81.65 kg; aj Height 5 ft. 4 in. (162.56 cm); 21:08 Pulse 114; Resp 16; Pulse Ox 100% on R/A; ak1 21:43 BP 125 / 65; Pulse 119; Resp 16; Temp 98.6(TE); Pulse Ox 100% on R/A; Pain 3/10; ak1 22:19 BP 128 / 66; Pulse 116; Resp 16; Pulse Ox 100% on R/A; Pain 2/10; ak1 20:14 Body Mass Index 30.90 (81.65 kg, 162.56 cm) ED Course: 20:01 Patient arrived in ED. do 20:01 Devan Eric MD is Private Physician. do 20:12 Triage completed. aj 20:13 Courtney Abraham, MARY is Primary Nurse. ak1 20:14 Arm band placed on right wrist. Patient placed in an exam room. EKG completed in triage. Results shown to MD. 20:25 Maura Toledo [facility] snw 20:25 Jacob Campos MD is Attending Physician. snw 20:29 Inserted saline lock: 20 gauge in right forearm, using aseptic technique. Blood ak1 collected. 20:37 X-ray completed. Portable x-ray completed in exam room. Patient tolerated procedure bb2 well. 20:38 Chest Single View XRAY In Process Unspecified. EDMS 21:07 Patient has correct armband on for positive identification. Placed in gown. Bed in low ak1 position. Call light in reach. Side rails up X 1. Pulse ox on. NIBP on. Warm blanket given. 21:09 No provider procedures requiring assistance completed. Patient maintains SpO2 ak1 saturation greater than 95% on room air. 21:20 Devan Eric MD is Hospitalizing Provider. snw 21:43 Patient admitted, IV remains in place. ak1 23:04 Repeat lab(s) drawn. by me, sent to lab. Inserted saline lock: 22 gauge in left rg2 antecubital area, using aseptic technique. Blood collected. Administered Medications: 20:43 Drug: NS 0.9% 1000 ml Route: IV; Rate: 1 bolus; Site: right antecubital; ak1 21:41 Follow up: IV Status: Completed infusion ak1 20:43 Drug: Phenergan 25 mg Route: IVP; Site: right antecubital; ak1 21:14 Follow up: Response: No adverse reaction ak1 20:43 Drug: NS 0.9% 1000 ml Route: IV; Rate: 1 bolus; Site: right antecubital; ak1 22:30 Follow up: IV Status: Infusion continued upon admission ak1 20:54 Drug: fentaNYL (PF) 25 mcg Route: IVP; Site: right forearm; ak1 21:14 Follow up: Response: No adverse reaction ak1 21:21 Not Given (verbal orders to cancel ): Albuterol 2.5 mg Inhalation every 20 minutes x3 ak1 21:35 Drug: Insulin Drip - (Insulin Regular Human 100 units, NS 0.9% 100 ml) {Co-Signature: le gonzalez (David Bowman RN).} Route: IV; Rate: 8 units/hr; Site: right forearm; 22:40 Follow up: IV Status: Infusion continued upon admission ak1 Point of Care Testing: Blood Glucose: 20:29 Blood Glucose: High (>450 mg/dL); ak1 Ranges: Outcome: 21:21 Decision to Hospitalize by Provider. snw 21:50 Admitted to ICU accompanied by nurse, via stretcher, room 6, on monitor, with chart, ak1 Other pt remains on insulin drip 21:50 critical 21:50 Instructed on the need for admit. 23:28 Patient left the ED. ak1 Signatures: Dispatcher [employer] Valerie Edwards2 Yusra Spicer RN RN aj Therrien, Shelly, INCLUSION SPECIALIST-C INCLUSION SPECIALIST-Csnw Courtney Abraham RN RN ak1 [place]ree, Danielle do Bock, Brittany 2 David Bowman RN jd3
[2018-03-02] MEDS ORDERED: INSULIN -REGULAR HUMAN 50 UNIT/0.5 ML ML ONE (21:32)
[2018-03-02] MEDS ORDERED: NA CHLORIDE 0.9% 100 ML IV ONE (21:32)
[2018-03-02 21:43] LABS: Urine Blood 2+ (NEG); Urine Glucose 2+ (NEG); Urine Protein 3+ (NEG); Urine Specific Gravity 1.015 (1.005-1.030); Urine pH 5.5 (5.0-7.0)
[2018-03-02] MEDS: D5 0.45 NS 1,000 ML IV SCH (22:33)
[2018-03-02] MEDS ORDERED: INSULIN -REGULAR HUMAN 100 UNIT in NA CHLORIDE 0.9% 100 ML IV SCH (22:33)
[2018-03-02] MEDS ORDERED: PROMETHAZINE 25 MG/ML VIAL IV PRN (23:41)
[2018-03-02] MEDS ORDERED: FENTANYL CITR 100 MCG/2 ML IV PRN (23:42)
[2018-03-03] MEDS: NACHLORIDE 0.45% 1,000 ML IV SCH ×5 (00:07→14:33)
[2018-03-03 00:46] LABS: Urine Appearance CLEAR; Urine Bilirubin NEGATIVE (NEG); Urine Blood 2+ (NEG); Urine Color YELLOW; Urine Glucose 3+ (NEG); Urine Protein 2+ (NEG); Urine Urobilinogen 0.2 mg/dL (0.2-1.0); Urine pH 5.5 (5.0-7.0)
[2018-03-03 00:55] LABS: Urine Amorphous Sediment 1+ /HPF (NONE SEEN); Urine Bacteria <20 /HPF (<20); Urine Culture Reflex Order REFLEXED; Urine RBC NONE SEEN /HPF (NONE SEEN)
[2018-03-03 00:58] LABS: BUN Blood Urea Nitrogen 38 mg/dL (7-18); Bicarbonate 16 mmol/L (21-32); Potassium 4.4 mmol/L (3.5-5.1); Sodium Level 134 mmol/L (136-145)
[2018-03-03 00:59] LABS: Glucose Level 757 mg/dL (74-106)
[2018-03-03 01:24] VITALS: BMI 33.3
[2018-03-03 05:42] LABS: BUN Blood Urea Nitrogen 34 mg/dL (7-18); Bicarbonate 20 mmol/L (21-32); Glucose Level 278 mg/dL (74-106); Potassium 3.8 mmol/L (3.5-5.1); Sodium Level 138 mmol/L (136-145)
[2018-03-03] MEDS: D5 0.45 NS 1,000 ML IV SCH ×2 (05:56→11:53)
--- NOTE | 2018-03-03 07:49 | EKG ---
Test Date: 2018-03-02 Test Time: 20:08:31 Frame Cleaner: ARM MEASUREMENT RESULTS: Intervals: Rate: 120 IN: 164 QRSD: 92 QT: 328 QTc: 463 [place]: P: 48 IN: 164 QRS: 13 T: 37 INTERPRETIVE STATEMENTS: Sinus tachycardia Otherwise normal ECG Compared to ECG 01/21/2017 06:01:04 No significant changes Electronically Signed On 03-03-18 07:49:31 CDT by Patrick Wisdom
[2018-03-03] MEDS ORDERED: GLUCAGON 1 MG/VIAL IM PRN (08:16)
[2018-03-03] MEDS ORDERED: D50W 25 GM/50 ML SYRINGE IV PRN (08:16)
[2018-03-03] MEDS ORDERED: INSULIN GLARGINE 100 UNITS/ML SQ ONE (08:30)
[2018-03-03] MEDS: IBUPROFEN 400 MG TAB PO SCH ×2 (09:04→16:23)
[2018-03-03] MEDS: TRAMADOL HCL 50 MG TAB PO PRN ×2 (10:44→18:28)
--- NOTE | 2018-03-03 11:26 | P.HP ---
Certification for Inpatient Patient admitted to: Inpatient With expected LOS: >2 Midnights Patient will require the following post-hospital care: None Practitioner: I am a practitioner with admitting privileges, knowledge of patient current condition, hospital course, and medical plan of care. Services: Services provided to patient in accordance with Admission requirements found in Title 42 Section 412.3 of the Code of Federal Regulations Patient History Date of Service: 03/03/18 Primary Care Provider: Hernesto Reason for admission: Diabetic ketoacidosis History of Present Illness: Patient is an office patient. She sufferes type 1 diabetes and rheumatoid arthritis. The Patient changed out her insulin pump yesteday. she started having severe vomitting for an hour. Came to the er and was found to be in DKA. Admitted to the ICU on an insulin drip. Allergies cefaclor [From Ceclor] Allergy (Verified 03/03/18 01:21) Itching/Hives/Rash NSAIDS Allergy (Uncoded 03/03/18 01:21) Unknown Home Medications: RX: Venlafaxine HCl [Effexor*] 150 mg PO BEDTIME 01/09/16 Amlodipine [Norvasc] 10 mg PO DAILY 01/13/18 Aripiprazole [Abilify] 2 mg PO BEDTIME 01/13/18 Hydrocodone Bit/Acetaminophen [Hydrocodon-Acetaminophn 10-325] 1 tab PO BIDP PRN 01/13/18 Hydroxyzine HCl [Atarax] 10 mg PO BID 01/13/18 Levothyroxine [Synthroid] 75 mcg PO [id number] 01/13/18 Pregabalin [Lyrica] 100 mg PO BID 01/13/18 RX: Buspirone HCl 15 mg PO BID 03/03/18 Tamsulosin [Flomax*] 0.4 mg PO DAILY 03/03/18 - Past Medical/Surgical History Has patient received pneumonia vaccine in the past: Yes Diabetic: Yes -: DM1 since 2001 -: HTN -: RA -: Depression -: gastric ulcers -: Neuropathy -: tooth extraction - Family History Sister -: Diabetes Notes: TYPE I Father -: Other (see notes) Notes: thyroid Mother -: Heart disease, Cancer, Other (see notes) Notes: thyroid - Social History Smoking Status: Former smoker Alcohol use: No CD- Drugs: No Caffeine use: Yes Place of Residence: Home Review of Systems 10-point ROS is otherwise unremarkable Gastrointestinal: Nausea, Vomiting, Abdominal Pain Musculoskeletal: Leg Pain Physical Examination - Vital Signs Temperature: 98.0 F Blood Pressure: 149/94 Pulse: 98 Respirations: 9 Pulse Ox (%): 98 - Physical Exam General: Alert, In no apparent distress HEENT: Atraumatic, PERRLA, Mucous membr. moist/pink, EOMI, Sclerae nonicteric Neck: Supple, 2+ carotid pulse no bruit, No LAD, Without JVD or thyroid abnormality Respiratory: Clear to auscultation bilaterally, Normal air movement Cardiovascular: Regular rate/rhythm, Normal S1 S2 Gastrointestinal: Normal bowel sounds, No tenderness Musculoskeletal: No tenderness Integumentary: No rashes Neurological: Normal gait, Normal speech, Normal strength at 5/5 x4 extr, Normal tone, Normal affect Lymphatics: No axilla or inguinal lymphadenopathy - Studies Laboratory Data (last 24 hrs) 03/02/18 20:30: Sodium 122 L, Potassium 5.9 H*, BUN 36 H, Creatinine 3.20 H, Glucose 1168 H* 03/02/18 20:30: WBC 12.0 H, Hgb 11.1 L, Hct 37.0, Plt Count 243 Assessment and Plan - Problems (Diagnosis) (1) DKA (diabetic ketoacidoses) Onset Date: 03/03/18 Current Visit: Yes Status: Acute Plan: Her gap has closed. Will start her on levemir, with sliding scale insulin. Untill her family can bring her pump. Will see if she can tolerate food. If so and blood sugars are controlled. Will transfer to the floors. Qualifiers: Diabetes mellitus type: type 1 Diabetes mellitus complication detail: without coma Qualified Code(s): E10.10 - Type 1 diabetes mellitus with ketoacidosis without coma (2) Depression Onset Date: 01/10/16 Current Visit: No Status: Acute Plan: Patient is in good spirits today. Qualifiers: Depression Type: dysthymia Qualified Code(s): F34.1 - Dysthymic disorder (3) Rheumatoid arthritis Onset Date: 01/10/16 Current Visit: No Status: Acute Plan: Will start her home medications. Start ibuprofen and tramadol for pain at this time Qualifiers: Rheumatoid arthritis location: multiple sites Rheumatoid factor presence: with rheumatoid factor Qualified Code(s): M05.79 - Rheumatoid arthritis with rheumatoid factor of multiple sites without organ or systems involvement (4) HTN (hypertension) Onset Date: 01/10/16 Current Visit: No Status: Chronic Plan: Continue home meds Qualifiers: Hypertension type: essential hypertension Qualified Code(s): I10 - Essential (primary) hypertension Discharge Plan: Home Plan to discharge in: 48 Hours - Advance Directives Does patient have a Living Will: No Does patient have a Durable POA for Healthcare: No - Code Status/Comfort Care Code Status Assessed: Yes Code Status: Full Code Physician Review: Patient Assessed, Agree with Above Assessment and Plan Critical Care: No Time Spent Managing Pts Care (In Minutes): 45
[2018-03-03] MEDS: INSULIN -REGULAR HUMAN 50 UNIT/0.5 ML ML SQ SCH ×3 (11:37→22:03)
[2018-03-03 12:15] LABS: Albumin 2.3 g/dL (3.4-5.0); Bilirubin Total 0.2 mg/dL (0.2-1.0); Potassium 4.5 mmol/L (3.5-5.1); Protein, Total 5.2 g/dL (6.4-8.2)
[2018-03-03] MEDS: NA CHLORIDE 0.9% 1,000 ML IV SCH (16:43)
[2018-03-03] MEDS: CEFTRIAXONE/SWI 1gm 1 GM/10 ML SYR IV SCH (17:57)
[2018-03-03] MEDS: ARIPIPRAZOLE 2 MG PO SCH (21:00)
[2018-03-03] MEDS: BUSPIRONE HCL 15 MG TABLET PO SCH (21:00)
[2018-03-03] MEDS: PREGABALIN 50 MG CAP PO SCH (22:02)
[2018-03-04] MEDS: INSULIN -REGULAR HUMAN 50 UNIT/0.5 ML ML SQ SCH ×6 (01:00→20:49)
[2018-03-04] MEDS: IBUPROFEN 400 MG TAB PO SCH ×3 (01:18→17:00)
[2018-03-04] MEDS: NA CHLORIDE 0.9% 1,000 ML IV SCH ×3 (03:20→20:49)
[2018-03-04] MEDS: LEVOTHYROXINE SOD 0.075 MG TAB PO SCH (05:56)
[2018-03-04 06:08] LABS: Absolute Lymphocytes (CBC) 3.7 K/uL (0.7-4.9); Absolute Monocytes 0.3 K/uL (0.1-1.3); Absolute Neutrophil 2.4 K/uL (1.8-8.0); Basophils % 0.8 % (0-1.3); Eosinophils % 5.8 % (0-4.4); Hematocrit 29.9 % (36.0-45.0); Lymphocytes % 53.8 % (15.3-44.8); MCH 28.5 pg (27.0-35.0); MCV 85.3 fL (80-100); MPV 7.9 fL (7.6-11.3); Monocytes % 4.6 % (3.3-12.3)
[2018-03-04 06:28] LABS: Albumin 2.3 g/dL (3.4-5.0); Bilirubin Total 0.2 mg/dL (0.2-1.0); Protein, Total 5.3 g/dL (6.4-8.2)
[2018-03-04 07:31] LABS: Blood Morphology Comment NOT SEEN (NOT SEEN); Platelet Estimate ADEQ; Urine White Blood Cell Casts OK
--- NOTE | 2018-03-04 08:29 | P.PN ---
Subjective Date of Service: 03/04/18 Primary Care Provider: Hernesto Chief Complaint: Diabetic ketoacidosis Subjective: Improving (out of icu. Tolerating po food) Review of Systems 10-point ROS is otherwise unremarkable Physical Examination - Vital Signs Temperature: 98.2 F Blood Pressure: 159/92 Pulse: 89 Respirations: 16 Pulse Ox (%): 97 - Physical Exam General: Alert, In no apparent distress HEENT: Atraumatic, PERRLA, EOMI Neck: Supple, JVD not distended Respiratory: Clear to auscultation bilaterally, Normal air movement Cardiovascular: Regular rate/rhythm, Normal S1 S2 Gastrointestinal: Normal bowel sounds, No tenderness Musculoskeletal: No tenderness Integumentary: No rashes Neurological: Normal speech, Normal tone, Normal affect Lymphatics: No axilla or inguinal lymphadenopathy - Studies Microbiology Data (last 24 hrs): 03/02/18 20:29 Blood - Blood Anaerobic Blood Culture - Final 03/02/18 20:29 Blood - Blood Anaerobic Blood Culture - Final Assessment & Plan - Problems (Diagnosis) (1) Acute on chronic renal failure Onset Date: 01/22/17 Current Visit: No Status: Acute Plan: Baseline creatine of 1.3 She is currently at 2.2. Will continue IVF. Check bmp at noon. If she is close to her baseline we can safely d/c. If not will keep her overnight for iv fluids. Qualifiers: Acute renal failure type: unspecified Chronic kidney disease stage: stage 3 (moderate) Qualified Code(s): N17.9 - Acute kidney failure, unspecified; N18.3 - Chronic kidney disease, stage 3 (moderate) (2) DKA (diabetic ketoacidoses) Onset Date: 03/03/18 Current Visit: Yes Status: Acute Plan: Patient is doing better. Will need her grandmother to bring her insulin pump. Stop the injections. If she is controlled with the pump and her creatine improves we can send her home today. Qualifiers: Diabetes mellitus type: type 1 Diabetes mellitus complication detail: without coma Qualified Code(s): E10.10 - Type 1 diabetes mellitus with ketoacidosis without coma (3) Depression Onset Date: 01/10/16 Current Visit: No Status: Acute Plan: Patient is in good spirits today. Qualifiers: Depression Type: dysthymia Qualified Code(s): F34.1 - Dysthymic disorder (4) Rheumatoid arthritis Onset Date: 01/10/16 Current Visit: No Status: Acute Plan: Will start her home medications. Start ibuprofen and tramadol for pain at this time Qualifiers: Rheumatoid arthritis location: multiple sites Rheumatoid factor presence: with rheumatoid factor Qualified Code(s): M05.79 - Rheumatoid arthritis with rheumatoid factor of multiple sites without organ or systems involvement (5) HTN (hypertension) Onset Date: 01/10/16 Current Visit: No Status: Chronic Plan: Continue home meds Qualifiers: Hypertension type: essential hypertension Qualified Code(s): I10 - Essential (primary) hypertension Discharge Plan: Home Plan to discharge in: 24 Hours - Code Status/Comfort Care Code Status Assessed: No Code Status: Full Code Physician Review: Patient Assessed, Agree with Above Assessment and Plan Critical Care: No Time Spent Managing Pts Care (In Minutes): 30
[2018-03-04] MEDS ORDERED: CEFTRIAXONE 1 GM/NS 50 ML 50 ML IV SCH (09:00)
[2018-03-04] MEDS: PREGABALIN 50 MG CAP PO SCH ×2 (09:27→20:47)
[2018-03-04] MEDS: AMLODIPINE 10 MG TAB PO SCH (09:28)
[2018-03-04] MEDS: BUSPIRONE HCL 15 MG TABLET PO SCH ×2 (09:29→20:48)
[2018-03-04] MEDS: TAMSULOSIN 0.4 MG SR CAP PO SCH (09:29)
[2018-03-04] MEDS: TRAMADOL HCL 50 MG TAB PO PRN ×2 (10:16→18:01)
[2018-03-04 12:34] LABS: Potassium 4.1 mmol/L (3.5-5.1)
[2018-03-04] MEDS: CEFTRIAXONE/SWI 1gm 1 GM/10 ML SYR IV SCH (17:57)
[2018-03-04] MEDS: ARIPIPRAZOLE 2 MG PO SCH (20:53)
[2018-03-04] MEDS ORDERED: HYDRALAZINE HCL 20 MG/ML VIAL IV ONE (21:38)
[2018-03-05] MEDS: TRAMADOL HCL 50 MG TAB PO PRN ×2 (00:15→12:38)
[2018-03-05] MEDS: IBUPROFEN 400 MG TAB PO SCH ×2 (00:18→08:04)
[2018-03-05] MEDS: INSULIN -REGULAR HUMAN 50 UNIT/0.5 ML ML SQ SCH ×5 (00:56→16:14)
[2018-03-05 01:09] VITALS: O2SAT 99
[2018-03-05] MEDS: LEVOTHYROXINE SOD 0.075 MG TAB PO SCH (05:03)
[2018-03-05 07:32] LABS: ALT/SGPT 19 U/L (12-78); AST/SGOT 25 U/L (15-37); Albumin 2.4 g/dL (3.4-5.0); Alkaline Phosphatase 76 U/L (45-117); BUN Blood Urea Nitrogen 23 mg/dL (7-18); Bicarbonate 19 mmol/L (21-32); Glucose Level 165 mg/dL (74-106); Potassium 4.4 mmol/L (3.5-5.1); Protein, Total 5.6 g/dL (6.4-8.2); Sodium Level 146 mmol/L (136-145)
[2018-03-05 07:33] LABS: Bilirubin Total < 0.1 mg/dL (0.2-1.0)
[2018-03-05 07:49] LABS: Absolute Lymphocytes (CBC) 3.5 K/uL (0.7-4.9); Absolute Monocytes 0.4 K/uL (0.1-1.3); Absolute Neutrophil 1.9 K/uL (1.8-8.0); Basophils % 0.9 % (0-1.3); Eosinophils % 6.3 % (0-4.4); Hematocrit 30.8 % (36.0-45.0); MCH 28.2 pg (27.0-35.0); MCV 84.3 fL (80-100); MPV 7.7 fL (7.6-11.3); Monocytes % 5.9 % (3.3-12.3); RBC Red Blood Cell Count 3.65 M/uL (3.86-4.86)
[2018-03-05] MEDS: BUSPIRONE HCL 15 MG TABLET PO SCH (08:06)
[2018-03-05] MEDS: AMLODIPINE 10 MG TAB PO SCH (08:07)
[2018-03-05] MEDS: TAMSULOSIN 0.4 MG SR CAP PO SCH (08:07)
[2018-03-05] MEDS: PREGABALIN 50 MG CAP PO SCH (08:07)
--- NOTE | 2018-03-05 08:50 | P.PN ---
Subjective Date of Service: 03/05/18 Primary Care Provider: Hernesto Chief Complaint: Diabetic ketoacidosis Subjective: Improving (Improving creatine) Review of Systems 10-point ROS is otherwise unremarkable Physical Examination - Vital Signs Temperature: 97.2 F Blood Pressure: 170/108 Pulse: 105 Respirations: 18 Pulse Ox (%): 98 - Physical Exam General: Alert, In no apparent distress HEENT: Atraumatic, PERRLA, EOMI Neck: Supple, JVD not distended Respiratory: Clear to auscultation bilaterally, Normal air movement Cardiovascular: Regular rate/rhythm, Normal S1 S2 Gastrointestinal: Normal bowel sounds, No tenderness Musculoskeletal: No tenderness Integumentary: No rashes Neurological: Normal speech, Normal tone, Normal affect Lymphatics: No axilla or inguinal lymphadenopathy Assessment & Plan - Problems (Diagnosis) (1) Acute on chronic renal failure Onset Date: 01/22/17 Current Visit: No Status: Acute Plan: Baseline creatine of 1.3 She is currently at 1.9 Will continue fluids. D/c ibuprofen and start tylenol. Will also need to correct the blood pressure better Qualifiers: Acute renal failure type: unspecified Chronic kidney disease stage: stage 3 (moderate) Qualified Code(s): N17.9 - Acute kidney failure, unspecified; N18.3 - Chronic kidney disease, stage 3 (moderate) (2) HTN (hypertension) Onset Date: 01/10/16 Current Visit: No Status: Chronic Plan: Not well controlled. Will d/c ibuprofen and add imdur Qualifiers: Hypertension type: essential hypertension Qualified Code(s): I10 - Essential (primary) hypertension (3) DKA (diabetic ketoacidoses) Onset Date: 03/03/18 Current Visit: Yes Status: Acute Plan: Patient is doing better. Will need her grandmother to bring her insulin pump. Stop the injections. If she is controlled with the pump and her creatine improves we can send her home today. Qualifiers: Diabetes mellitus type: type 1 Diabetes mellitus complication detail: without coma Qualified Code(s): E10.10 - Type 1 diabetes mellitus with ketoacidosis without coma (4) Depression Onset Date: 01/10/16 Current Visit: No Status: Acute Plan: Patient is in good spirits today. Qualifiers: Depression Type: dysthymia Qualified Code(s): F34.1 - Dysthymic disorder (5) Rheumatoid arthritis Onset Date: 01/10/16 Current Visit: No Status: Acute Plan: Will start her home medications. Start ibuprofen and tramadol for pain at this time Qualifiers: Rheumatoid arthritis location: multiple sites Rheumatoid factor presence: with rheumatoid factor Qualified Code(s): M05.79 - Rheumatoid arthritis with rheumatoid factor of multiple sites without organ or systems involvement Discharge Plan: Home Plan to discharge in: 24 Hours - Code Status/Comfort Care Code Status Assessed: No Code Status: Full Code Physician Review: Patient Assessed, Agree with Above Assessment and Plan Critical Care: No Time Spent Managing Pts Care (In Minutes): 20
[2018-03-05] MEDS ORDERED: ISOSORBIDE MONO SR 30 MG TAB PO SCH (09:00)
[2018-03-05] MEDS: ACETAMINOPHEN 500 MG TAB PO SCH ×2 (09:00→14:28)
[2018-03-05 09:53] LABS: Blood Morphology Comment NOT SEEN (NOT SEEN); Platelet Estimate ADEQ; Urine White Blood Cell Casts OK
[2018-03-05] MEDS: NA CHLORIDE 0.9% 1,000 ML IV SCH (12:38)
[2018-03-05 13:08] LABS: Potassium 4.1 mmol/L (3.5-5.1)
[2018-03-05] MEDS: CEFTRIAXONE/SWI 1gm 1 GM/10 ML SYR IV SCH (16:13)
[2018-03-05 17:42] VITALS: BP 137/93; TEMP 98
[2018-03-05] MEDS ORDERED: AMOX/K CLAV 875 MG TAB PO SCH (21:00)
[2018-03-05] MEDS ORDERED: NITROFURAN MACRO 100 MG CAP PO SCH (21:00)
--- NOTE | 2018-03-05 22:02 | P.CNS ---
Date of Consult: 03/05/18 Reason for Consult: DANUTA Requesting Physician: Devan Eric Primary Care Provider: Hernesto Chief Complaint: Diabetic ketoacidosis History of Present Illness: 27 yo WF DM, CKD admitted with DKA and DANUTA. Patient is an office patient. She sufferes type 1 diabetes and rheumatoid arthritis. The Patient changed out her insulin pump yesteday. she started having severe vomitting for an hour. Came to the er and was found to be in DKA. Admitted to the ICU on an insulin drip. 20:36 This 27 yrs old Female presents to ER via Ambulatory with complaints of Chest snw Tightness, High Blood Sugar. 20:36 The patient or guardian reports chest pain that is located primarily in the anterior snw chest wall. The pain does not radiate. Associated signs and symptoms: The patient has no apparent associated signs or symptoms. The chest pain is described as sharp. Duration: The patient or guardian reports multiple episodes. Severity of pain: At its worst the pain was mild moderate. The patient has experienced a previous episode. The patient has not recently seen a physician, the patient's primary care provider is Dr. Dr. Eric. IDDM since age 10. Changed site of insulin pump this am. No recent fever.. Allergies cefaclor [From [facility]] Allergy (Verified 03/03/18 01:21) Itching/Hives/Rash NSAIDS Allergy (Uncoded 03/03/18 01:21) Unknown Home medications list reviewed: Yes Home Medications: Venlafaxine HCl [Effexor*] 150 mg PO BEDTIME 01/09/16 Amlodipine [Norvasc] 10 mg PO DAILY 01/13/18 Aripiprazole [Abilify] 2 mg PO BEDTIME 01/13/18 Hydrocodone Bit/Acetaminophen [Hydrocodon-Acetaminophn 10-325] 1 tab PO BIDP PRN 01/13/18 Hydroxyzine HCl [Atarax] 10 mg PO BID 01/13/18 Levothyroxine [Synthroid] 75 mcg PO [id number] 01/13/18 Pregabalin [Lyrica] 100 mg PO BID 01/13/18 Buspirone HCl 15 mg PO BID 03/03/18 Tamsulosin [Flomax*] 0.4 mg PO DAILY 03/03/18 - Past Medical/Surgical History Diabetic: Yes -: DM1 since 2001 -: HTN -: RA -: Depression -: gastric ulcers -: Neuropathy -: tooth extraction - Family History Sister Medical History: Diabetes Notes: TYPE I Father Medical History: Other (see notes) Notes: thyroid Mother Medical History: Heart disease, Cancer, Other (see notes) Notes: thyroid - Social History Smoking Status: Current some day smoker Alcohol use: No CD- Drugs: No Caffeine use: Yes Place of Residence: Home Review of Systems 10-point ROS is otherwise unremarkable General: Malaise Physical Examination Temp Pulse Resp BP Pulse Ox 98.0 F 69 18 137/93 H 99 03/05/18 16:00 03/05/18 16:00 03/05/18 16:00 03/05/18 16:00 03/05/18 16:00 General: In no apparent distress, Oriented x3, Cooperative HEENT: Atraumatic Neck: Supple Respiratory: Clear to auscultation bilaterally Cardiovascular: No edema, Regular rate/rhythm, No rubs Gastrointestinal: Soft and benign, Non-distended Musculoskeletal: No clubbing, No contractures Integumentary: No rashes, No cyanosis Neurological: Normal speech External genitalia: No edema Blood work reviewed in the chart. Hgb 10.3; Cr 1.90 Imagings Data: EXAM DESCRIPTION: RAD - Chest Single View - 03/02/2018 8:39 pm CLINICAL HISTORY: Chest pain COMPARISON: January 2017 TECHNIQUE: AP portable chest image was obtained 2037 hours . FINDINGS: Lungs are clear. Heart and vasculature are normal. No measurable pleural effusion and no pneumothorax. No gross bony abnormality seen. No acute aortic findings suspected. IMPRESSION: No acute cardiopulmonary process. No significant interval change. Conclusions/Impression: A/ DANUTA in the setting of DKA. CKD III with Proteinuria. DM I with DKA and CKD. HTN with CKD. Hypocalcemia. Anemia in chronic illness. Moderate malnutrition. P/ Continue current POC and Medications. Agree with IVF. Start Vitamin D. Maintain nutrition. No NSAIDs. AM labs. Daily weight. Thank you kindly for the consultation. Case discussed with Dr. Eric.
--- NOTE | 2018-03-06 08:16 | P.DS ---
Admission Date: 03/02/18 Discharge Date: 03/05/18 Primary Care Provider: Hernesto Disposition: AMA-LEFT AGAINST MEDICAL ADVIC Reason for Admission: Diabetic ketoacidosis - Problems (1) Acute on chronic renal failure Onset Date: 01/22/17 Status: Acute Qualifiers: Acute renal failure type: unspecified Chronic kidney disease stage: stage 3 (moderate) Qualified Code(s): N17.9 - Acute kidney failure, unspecified; N18.3 - Chronic kidney disease, stage 3 (moderate) (2) HTN (hypertension) Onset Date: 01/10/16 Status: Chronic Qualifiers: Hypertension type: essential hypertension Qualified Code(s): I10 - Essential (primary) hypertension (3) DKA (diabetic ketoacidoses) Onset Date: 03/03/18 Status: Acute Qualifiers: Diabetes mellitus type: type 1 Diabetes mellitus complication detail: without coma Qualified Code(s): E10.10 - Type 1 diabetes mellitus with ketoacidosis without coma (4) Depression Onset Date: 01/10/16 Status: Acute Qualifiers: Depression Type: dysthymia Qualified Code(s): F34.1 - Dysthymic disorder (5) Rheumatoid arthritis Onset Date: 01/10/16 Status: Acute Qualifiers: Rheumatoid arthritis location: multiple sites Rheumatoid factor presence: with rheumatoid factor Qualified Code(s): M05.79 - Rheumatoid arthritis with rheumatoid factor of multiple sites without organ or systems involvement Brief History of Present Illness: Patient is an office patient. She sufferes type 1 diabetes and rheumatoid arthritis. The Patient changed out her insulin pump yesteday. she started having severe vomitting for an hour. Came to the er and was found to be in DKA. Admitted to the ICU on an insulin drip. Hospital Course: Patient was admitted to the ICU. Her gap closed relatively quickly and she was transfered to the floor. The patient creatine stayed elevated. Kept her on IVF. Unfortunately she did not recover. Consult Dr. Zapata who's group has seen her in the past. Unfortunately the patient wanted to go. Told nursing staff that Dr. Zapata told her she could go home. I called him and spoke to him. He did not say that. The patient is normal a stage 3-4 ckd. It is very desirable to keep her off dialysis. She did not seem to think this important and left ama Vital Signs/Physical Exam: Temp Pulse Resp BP Pulse Ox 98.0 F 69 18 137/93 H 99 03/05/18 16:00 03/05/18 16:00 03/05/18 16:00 03/05/18 16:00 03/05/18 16:00 General: Alert, In no apparent distress HEENT: Atraumatic, PERRLA, EOMI Neck: Supple, JVD not distended Respiratory: Clear to auscultation bilaterally, Normal air movement Cardiovascular: Regular rate/rhythm, Normal S1 S2 Gastrointestinal: Normal bowel sounds, No tenderness Musculoskeletal: No tenderness Integumentary: No rashes Neurological: Normal speech, Normal tone, Normal affect Lymphatics: No axilla or inguinal lymphadenopathy Laboratory Data at Discharge: WBC 6.3 K/uL (4.3-10.9) 03/05/18 07:40 Hgb 10.3 g/dL (12.0-15.0) L 03/05/18 07:40 Hct 30.8 % (36.0-45.0) L 03/05/18 07:40 Plt Count 222 K/uL (152-406) 03/05/18 07:40 Sodium 142 mmol/L (136-145) 03/05/18 12:31 Potassium 4.1 mmol/L (3.5-5.1) 03/05/18 12:31 BUN 22 mg/dL (7-18) H 03/05/18 12:31 Creatinine 2.10 mg/dL (0.55-1.3) H 03/05/18 12:31 Glucose 282 mg/dL (74-106) H 03/05/18 12:31 Total Bilirubin < 0.1 mg/dL (0.2-1.0) L 03/05/18 06:41 AST 25 U/L (15-37) 03/05/18 06:41 ALT 19 U/L (12-78) 03/05/18 06:41 Alkaline Phosphatase 76 U/L (45-117) 03/05/18 06:41 Home Medications: Venlafaxine HCl [Effexor*] 150 mg PO BEDTIME 01/09/16 Amlodipine [Norvasc] 10 mg PO DAILY 01/13/18 Aripiprazole [Abilify] 2 mg PO BEDTIME 01/13/18 Hydrocodone Bit/Acetaminophen [Hydrocodon-Acetaminophn 10-325] 1 tab PO BIDP PRN 01/13/18 Hydroxyzine HCl [Atarax] 10 mg PO BID 01/13/18 Levothyroxine [Synthroid] 75 mcg PO [id number] 01/13/18 Pregabalin [Lyrica] 100 mg PO BID 01/13/18 Buspirone HCl 15 mg PO BID 03/03/18 Tamsulosin [Flomax*] 0.4 mg PO DAILY 03/03/18 Diet: ADA Activity: Ad kala Time spent managing pt's care (in minutes): 60
== END 2018-03-05 19:02 | disposition left against medical advice (07) | DRG 638 ==
LOC: ER 20:00 → ERHOLD 21:35 → 3RD-ICU 22:48 → 2ND 03-03 18:05
PROVIDERS: ADMIT Internal Medicine; ATTEND Internal Medicine
DX: E10.10 Type 1 diabetes mellitus with ketoacidosis without coma (principal); N17.9 Acute kidney failure, unspecified; E44.0 Moderate protein-calorie malnutrition; M05.79 Rheumatoid arthritis with rheumatoid factor of multiple sites without organ or systems involvement; F34.1 Dysthymic disorder; E10.40 Type 1 diabetes mellitus with diabetic neuropathy, unspecified; E10.22 Type 1 diabetes mellitus with diabetic chronic kidney disease; I12.9 Hypertensive chronic kidney disease with stage 1 through stage 4 chronic kidney disease, or unspecified chronic kidney disease; N18.3 Chronic kidney disease, stage 3 (moderate); Z96.41 Presence of insulin pump (external) (internal); Z88.6 Allergy status to analgesic agent; F17.200 Nicotine dependence, unspecified, uncomplicated; Z88.1 Allergy status to other antibiotic agents; D63.1 Anemia in chronic kidney disease; E83.51 Hypocalcemia
CPT/HCPCS: 36415; 71045; 80048; 80053; 81001; 81003; 81025; 82010; 82805; 82947; 82962; 85025; 87040; 87077; 87086; 87088; 87186; 93005; 99285; J0360; J0696; J2550; J3010; J7030